=== PATIENT | female | born 1965 | race Caucasian/White ===

== ENCOUNTER 2017-01-12 16:15 | Emergency (ER) | payer OTHER ==
[~2017-01-12 16:15] MED LIST: ACTOS15 MG PO; ASPIRIN81 M1 PO; ATACAND8 MG PO; CLARITIN10 M2 PO; COREG3.125 MG PO; GLUCOPHAGE500 MG PO; IMITREX25 MG; LASIX20 MG PO; LATUDA20 MG PO; LEVEMIR FL100 UNIT/M SC; LEVOTHYROXINE100 MCG PO; ONGLYZA5 MG PO; SIMVASTATIN5 MG PO; VENTOLIN HFA IN
--- NOTE | 2017-01-13 12:33 | ED NURSING NOTES ---
Clinical Report - Nurses [facility] [address] [place] [address] 01/12/2017 16:16 [id number] Triage time 16:20 Jan 12 2017. Acuity: LEVEL 2. Chief Complaint: SUICIDAL THOUGHTS and HOMICIDAL THOUGHTS. Alert. No acute distress. CHHAYA COMA SCORE: [address] Coma Scale: 15- eyes open spontaneously (4); best verbal response- oriented x 4 (5); best motor response- obeys commands (6). --16:36 Rachel Sutton R.N. 16:20 01/12/17. BP: 142/105. HR: 88. RR: 20. O2 saturation: 97%. Temp: 98.4 F. Pain level now: 0/10. --16:36 Rachel Sutton R.N. Weight: 97.5 kg stated. Height/Length: 63 inches Per Patient. BMI: 38.1. --16:36 Rachel Sutton R.N. Medications HumaLOG Subcutaneous 5 units, before meals (lunch and dinner only). --16:23 Ashly Mayorga R.N. Victoza Subcutaneous 1.8, q AM. --16:23 Rachel Sutton R.N. Lipitor Oral (Tablet 20 mg) 1 tablet, at bedtime. --16:24 Rachel Sutton R.N. Carvedilol Phosphate ER Oral 12.5 mg, 2 x daily. --16:24 Rachel Sutton R.N. Candesartan Cilexetil Oral (Tablet 4 mg) 1 tablet, 2 x daily. --16:25 Rachel Sutton R.N. Furosemide 40 mg , 2x daily (1 1/2 in AM and 1 tab in afternoon). --16:25 Rachel Sutton R.N. ASA Oral 81 mg, daily. --16:26 Rachel Sutton R.N. Omeprazole Oral (Tablet Delayed Release 20 mg) 1 tablet, daily. --16:27 Rachel Sutton R.N. Zantac Oral (Tablet 150 mg) 1 tablet, at bedtime. --16:27 Rachel Sutton R.N. Latuda Oral (Tablet 40 mg) 1 tablet, Q AM. --16:27 Rachel Sutton R.N. Imitrex Oral (Tablet 100 mg) 1 tablet, PRN. --16:28 Rachel Sutton R.N. Mirapex Oral (Tablet 0.5 mg) 2 tablets, at bedtime. --16:28 Rachel Sutton R.N. Zofran Oral (Tablet 4 mg) 1 tablet, PRN. --16:29 Rachel Sutton R.N. TraZODone HCl Oral (Tablet 50 mg) 2 tablets, at bedtime. --16:29 Rachel Sutton R.N. Magnesium Oral 250 mg , twice daily. --16:29 Rachel Sutton R.N. Vitamin D 3 2000 IU, 2x a week. --16:30 Rachel Sutton R.N. HumuLIN 70/30 Subcutaneous (Suspension (70-30) 100 unit/mL) 28 units, q AM. --08:05 Ashly Mayorga R.N. The following entry was struck by Ashly Mayorga R.N., 08:06 (01/13/17) Reason - other. <<STRICKEN ENTRY-- HumuLIN N KwikPen Subcutaneous 28 units, 2 times daily. --16:22 Rachel Sutton R.N. --END STRIKE>> The following entry was struck and corrected by Ashly Mayorga R.N., 07:39 (01/13/17) Reason for correction - other(correction). <<STRICKEN ENTRY-- HumaLOG Subcutaneous 5 units, before meals. --16:23 Rachel Sutton R.N. --END STRIKE>>. Allergies Carafate. --16:31 Rachel Sutton R.N. LIsinopril. --16:31 Rachel Sutton R.N. Januvia. --16:31 Rachel Sutton R.N. LOSARTAN. --16:31 Rachel Sutton R.N. [place]. --16:31 Rachel Sutton R.N. Risperidone. --16:32 Rachel Sutton R.N. Seroquel. --16:32 Rachel Sutton R.N. Geodon. --16:32 Rachel Sutton R.N. Lamictal. --16:32 Rachel Sutton R.N. Depakote. --16:32 Rachel Sutton R.N. Reglan. --16:32 Rachel Sutton R.N. Gabapentin. --16:32 Rachel Sutton R.N. History Arrived by EMS. Historian: patient. Onset: today. She has had anxiety and sleeping difficulties and describes feelings of depression. Has been feeling agitated. Has not been confused. Denies having hallucinations. Treatment CODING TEAM LEAD: None. PAST MEDICAL HX: Immunizations: up-to-date. The patient is post-menopausal. SOCIAL HX: Never smoker. Occasional alcohol use. No drug use. No infectious disease exposure. SELF HARM ASSESSMENT: A self harm assessment was performed. The patient answered "yes" to the question "Have you recently felt down, depressed, or hopeless?", "Have you noticed less interest or pleasure in doing things?", "Do you have thoughts of harming or killing yourself?", "Are you here because you tried to hurt yourself?", "Have you ever tried to hurt yourself before today?" and "Have you recently had thoughts about harming or killing others?" and "no" to the question "Do you have any dangerous items in your possession?". The patient reports their behavior as anxious. In the ED the patient has been restless. She was placed in direct sight of the nurses station. Clothes and valuables were removed. The ED physician has been notified. ABUSE ASSESSMENT: Abuse assessment: The patient was asked "Do you feel safe in your home?", "Are you afraid to go home?", "Has anyone hurt you or threatened to hurt you?", "Are you afraid of your partner?" and "Have children witnessed violence in the home?". --16:36 Rachel Sutton R.N. PROBLEMS: Dehydration. Chest Wall Pain. Asthma. Bipolar Disorder. Hypothyroidism. Diabetes Mellitus. --16:32 Rachel Sutton R.N. ADDITIONAL SURGERIES: Cataract Surgery. Tonsillectomy. Uterine ablation . --16:32 Rachel Sutton R.N. Interventions ID band on patient. To room. --16:36 Rachel Sutton R.N. PHYSICAL ASSESSMENT GENERAL / NEURO / PSYCH: Alert. Oriented X 4. Appears in no acute distress. Patient's mood/affect appears flat and tearful. Patient appears calm and cooperative. RESPIRATORY: Respirations not labored. CVS: Capillary refill less than 2 seconds. GI / : Abdomen nontender. SKIN: Skin is warm and dry. --16:36 Rachel Sutton R.N. NURSING PROGRESS NOTES Patient gowned. Head of bed elevated. Suicide precautions initiated. Clothing / valuables removed. Patient placed in direct sight of the nurse's station. ED Physician has been notified. Two patient identifiers checked. Call light placed in reach. Side rails up x 2. Bed placed in lowest position. Brakes of bed on. Patient ready for evaluation. --16:37 Rachel Sutton R.N. 17:14 01/12/17. Patient ID band checked for patient name and birthdate: patient confirmed. Clean catch urine collected with return of yellow-colored clear urine; sample sent to lab for urinalysis, culture, drug screen and HCG. Specimen labeled in the presence of the patient. --17:14 April Cooper R.N. The patient reports no complaints and she is calm and resting quietly. GENERAL / NEURO / PSYCH: Denies anxiety. Alert. Patient appears calm and cooperative. Patient does not appear agitated. RESPIRATORY: No respiratory distress. SKIN: Skin is warm and dry. --19:44 Rachel Sutton R.N. 19:42 01/12/17. BP: 140/85. HR: 87. RR: 16. O2 saturation: 99%. Pain level now: 0/10. --19:44 Rachel Sutton R.N. 20:33 01/12/2017 home meds * PO . loratindine,thyroid, trazadone and lipitor --20:34 Rachel Sutton R.N. The patient is sleeping. RESPIRATORY: No respiratory distress. --02:05 Mike Wells R.N. 02:40 01/13/17. ( Pt given cup of water per request). --02:40 Bernadette Chavis R.N. The patient is sleeping. --03:03 Mike Wells R.N. 04:47 01/13/17. BP: 145/80 (regular adult cuff) taken on the left arm, via an automated monitor, while lying. HR: 68 (normal rate). RR: 14 (regular, unlabored and normal). O2 saturation: 98% on room air. Temp: 97.6 F (oral). --04:48 Mike Wells R.N. EKG time: (0445). EKG was ordered, performed by a nurse and shown to the ED physician. The patient is calm. ( Walked pt to/from bathroom.). GENERAL / NEURO / PSYCH: Alert. Oriented X 4. Patient appears calm and cooperative. RESPIRATORY: No respiratory distress. SKIN: Skin color within normal limits. --04:48 Mike Wells R.N. Warming measures: blanket applied. Lights dimmed. --04:51 Mike Wells R.N. 05:49 01/13/2017 Potassium Chloride (Potassium Chloride ER) PO Tablets 60 meq given. Allergies verified and confirmed 5 rights. --05:49 Mike Wells R.N. ( Gave pt jell-o x 2.). --05:56 Mike Wells R.N. Finger stick glucose: 246 mg/dL; performed by tech; result shown to the RN. --07:53 Aixa Flores 08:02 01/13/2017 Furosemide (Furosemide) PO Tablets 40 mg given. Allergies verified and confirmed 5 rights. --08:07 Ashly Mayorga R.N. 08:03 01/13/2017 Carvedilol PO Tablets 12.5 mg given. Allergies verified and confirmed 5 rights. --08:08 Ashly Mayorga R.N. 08:04 01/13/2017 Protonix (Pantoprazole Sodium) PO Tablets 40 mg given. (medicine committee approved interchange for omeprazole. See note from pharmacist). --08:09 Ashly Mayorga R.N. 08:04 01/13/2017 Magnesium Hydroxide PO Oral Suspension 10 mL given. Allergies verified and confirmed 5 rights. --08:09 Ashly Mayorga R.N. 08:09 01/13/2017 Humulin 70/30 Subcutaneous 28 unit given. Given in the right upper arm. Allergies verified and confirmed 5 rights. --08:14 Ashly Mayorga R.N. 08:00. Finger stick glucose: 246; performed by tech; result shown to the RN. --08:15 Ashly Mayorga R.N. ( Pt given breakfast, suicide precautions maintained. Friend at bedside). --08:15 Ashly Mayorga R.N. 10:01 01/13/17. The patient is sleeping. --10:01 Ashly Mayorga R.N. 10:27 01/13/17. Finger stick glucose: 283. --10:27 Ashly Mayorga R.N. Assisted patient to bathroom. --10:28 Ashly Mayorga R.N. The patient reports no complaints and she is calm and resting quietly. --10:28 Ashly Mayorga R.N. Assisted patient back to bed. --10:29 Ashly Mayorga R.N. The patient is sleeping. --11:07 Ashly Mayorga R.N. Suicide precautions maintained: a safety sweep of the room is ongoing. Frequent one on one supervision. --11:07 Ashly Mayorga R.N. 12:26 01/13/17. BP: 128/75. HR: 76. RR: 14. O2 saturation: 96% on room air. Temp: 97.6 F (oral). Pain level now 0/10. --12:26 Ashly Mayorga R.N. 12:26 01/13/17. --12:26 Ashly Mayorga R.N. The patient reports no complaints and she is calm and resting quietly. --12:27 Ashly Mayorga R.N. 12:34 01/13/2017 HUMALOG Subcutaneous 5 unit given. Given in the left upper arm. Allergies verified and confirmed 5 rights. --12:34 Ashly Mayorga R.N. 12:37 01/13/17. ( Lunch delivered to pt, suicidal precautions maintained). --12:37 Ashly Mayorga R.N. 12:51 01/13/17. Finger stick glucose: 276 mg/dL; performed by nurse. --12:51 Ashly Mayorga R.N. DISPOSITION / DISCHARGE 12:52 01/13/17. Departure time: 1259. ( see VS on progress flow sheet.). Report was given to an EMT/P. Report included patient's care, treatment, medications, reviewed medication reconcilliation, and condition (including any recent changes or anticipated changes). All questions were answered. ([facility]). Patient's personal items include, given to transport team. --12:53 Ashly Mayorga R.N. Report was given to a nurse via a phone call. Report included patient's care, treatment, medications, reviewed medication reconcilliation, and condition (including any recent changes or anticipated changes). Report was acknowledged and care was transferred. (Gaye Sanford RN). --13:05 Ashly Mayorga R.N. Locked/Released at 01/16/2017 15:04 by Ashly Mayorga R.N.
--- NOTE | 2017-01-13 12:33 | ED CLINICAL REPORT ---
Clinical Report - Physicians/Mid Levels [facility] [address] [place] [address] 01/12/2017 16:16 Patient: MICHAEL NGUYEN Time Seen: 16:21; upon arrival, initial patient contact, initial documentation, patient care assumed. Arrived- By private vehicle. Not in custody. Historian- patient. HISTORY OF PRESENT ILLNESS Chief Complaint: DEPRESSED and SUICIDAL THOUGHTS and AGITATED, AGGRESSIVE, HOMICIDAL THOUGHTS and VIOLENT BEHAVIOR. This started about 17 months ago. The patient has experienced situational problems but not exhibited a behavior change and was not found wandering and is compliant with medication. (having issues with neighbors for about 17mos, lots of banging on the jolley, today it was worse, and they were both banging and hitting the wall all day today, today it was bad enough that she wanted to slit her wrists and feels suicidal). No recent drug use or alcohol consumption. Has not been sleeping. She has had anxiety. Has been depressed and angry and had suicidal thoughts. No delusions, self-injury inflicted or hallucinations. The symptoms are described as severe. No injury is present. Similar symptoms previously: ( has suffered from depression but never had thoughts of si before). Recent medical care: Not recently seen/assessed. REVIEW OF SYSTEMS No headache, chest pain, abdominal pain, vomiting or diarrhea. No fever, cough, difficulty breathing or urinary frequency. All systems otherwise negative, except as recorded above. PAST HISTORY See nurses notes. ( PROBLEMS: Dehydration. Chest Wall Pain. Asthma. Bipolar Disorder. Hypothyroidism. Diabetes Mellitus. --16:32 Rachel Sutton, R.N. ADDITIONAL SURGERIES: Cataract Surgery. Tonsillectomy. Uterine ablation . --16:32 Rachel Sutton, R.N.). SOCIAL HISTORY Never smoker. Occasional alcohol use. No drug use. Has social support. Has place to stay. FAMILY HISTORY Negative. ADDITIONAL NOTES The nursing notes have been reviewed with agreement regarding the chief complaint, HPI, ROS, PMH and patient medications and allergies. PHYSICAL EXAM Vital Signs: 01/12/2017 16:20 BP: 142/105. HR: 88. RR: 20. O2 saturation: 97%. Temp: 98.4 F. Pain level now: 0/10. Have been reviewed as abnormal and appear to be correct. Hypertensive. Heart rate normal. Respiratory rate normal. Temperature normal. Oxygen saturation normal. Appearance: Alert. No acute distress. Appearance is normal. Eyes: Pupils equal, round and reactive to light. Neck: Normal inspection. Neck supple. CVS: Normal heart rate and rhythm. Heart sounds normal. Respiratory: Breath sounds normal. Chest nontender. Abdomen: Soft and nontender. Back: No tenderness. Skin: Skin warm and dry. Normal skin color. Normal skin turgor. Extremities: Extremities exhibit normal ROM. No lower extremity edema. Psych / Neuro: Oriented X 3. Abnormal mood and affect. Appears depressed. Speech normal. Cognition normal. Thought process not normal. Thought content normal. She expresses suicidal thoughts and a specific plan. Insight and judgement normal. Cranial nerves normal (as tested). No cerebellar findings. No motor deficit. No sensory deficit. LABS, X-RAYS, AND EKG EKG: No acute ischemia. Normal sinus rhythm. Rate: 68. Normal P waves. Normal MOISES. Normal QRS complex. Left axis deviation. Normal ST and T waves, QT and QTc. normal sinus. left access deviation. The study has been interpreted contemporaneously. The study has been independently viewed by me. The EKG appears to be a good tracing. I do not agree with or confirm the computer reading of the EKG. Laboratory Tests: UA-Culture if indicated: (AVIVA: 01/12/2017 17:11) ( MsgRcvd 01/12/2017 17:42) Final results Test Result Flag Units (Reference) URINE COLOR YELLOW URINE APPEARANCE CLEAR URINE GLUCOSE 1+ (NEGATIVE) URINE BILIRUBIN NEGATIVE (NEGATIVE) URINE KETONE NEGATIVE (NEGATIVE) URINE SPECIFIC GRAVITY 1.010 (1.010-1.030) URINE PH 7.5 (5.0-8.0) URINE PROTEIN NEGATIVE (NEGATIVE) URINE UROBILINOGEN 0.2 EU/dL (0.2-1.0) URINE NITRITE NEGATIVE (NEGATIVE) URINE BLOOD NEGATIVE (NEGATIVE) URINE LEUK ESTERASE NEGATIVE (NEGATIVE) URINE RBC NONE SEEN rbc/hpf (0-1) URINE WBC 0-1 wbc/hpf (0-1) URINE EPITHELIAL CELLS 5-10 EPI/hpf (0-5) URINE BACTERIA TRACE (<1+) (NONE SEEN) URINE COMMENT CULT NOT INDICATED URINE CULTURES ARE SET-UP BASED ON THE FOLLOWING CRITERIA:POSITIVE NITRITEPOSITIVE LEUKOCYTE ESTERASEGREATER THAN 10 WHITE BLOOD CELLSMODERATE (2+) OR GREATER BACTERIA Urine: (AVIVA: 01/12/2017 17:11) ( [facility]25[facility] Final results Test Result Flag Units (Reference) URINE NEGATIVE CBC w Diff: (AVIVA: 01/12/2017 16:40) ( [facility] 01/12/2017 16:51) Final results Test Result Flag Units (Reference) WHITE BLOOD COUNT 6.9 K/uL (4.5-11.5) RED BLOOD COUNT 3.80 L M/uL (4.00-5.20) HEMOGLOBIN 11.6 L gm/dL (12.0-16.0) HEMATOCRIT 34.3 L % (36.0-46.0) MEAN CELL VOLUME 90 fL (80-100) MEAN CORPUSCULAR HGB 31 pg (26-34) MEAN CORPUSCULAR HGB CONC 34 g/dL (31-37) RED CELL DISTRIBUTION WIDTH 13.8 % (11.6-14.8) PLATELET COUNT 290 K/uL (150-400) NEUTROPHIL % 58.3 % (50-75) LYMPH % 31.8 % (25-40) MONO % 8.0 % (3-14) EOSINOPHIL % 1.4 % (0-4) BASOPHIL % 0.5 % (0-2) Urine Drug Screen: (AVIVA: 01/12/2017 17:11) ( [facility] 01/12/2017 17:48) Final results Test Result Flag Units (Reference) AMPHETAMINE/METHAMPHETAMINE NEGATIVE (NEGATIVE) BARBITURATE NEGATIVE (NEGATIVE) BENZODIAZEPINE NEGATIVE (NEGATIVE) CANNABINOID NEGATIVE (NEGATIVE) COCAINE NEGATIVE (NEGATIVE) ECSTASY NEGATIVE (NEGATIVE) METHADONE NEGATIVE (NEGATIVE) OPIATE NEGATIVE (NEGATIVE) The urine drug screen is a qualitative screening test fordrug overdose and abuse. All screen results should beconsidered as presumptive.Drugs screened for are as follows:BenzodiazepinesCocaineAmphetamines/MetamphetaminesTHC (Tetrahydrocannabinol)OpiatesBarbituratesEcstasyMethadonePositive results are unconfirmed. For confirmation, notifythe lab for the specimen to be sent to the reference lab.All confirmations must be performed by a differentmethodology.The ingestion of natural herbal and plant productscontaining Ephedra/Ephedra metabolites can produce in urineone or more substances capable of cross reacting withamphetamine/methamphetamine immunoassays. These testsprovide a preliminary result only. A more specificalternative chemical method must be used to obtain aconfirmed analytical result. Salicylate Level: (AVIVA: 01/12/2017 16:40) ( MtgRcvd 01/12/2017 17:43) Final results Test Result Flag Units (Reference) SALICYLATE <2.8 L mg/dL (2.8-20) CMP: (AVIVA: 01/12/2017 16:40) ( MsgRcvd 01/12/2017 17:31) Final results Test Result Flag Units (Reference) GLUCOSE 223 H mg/dL (70-110) BUN 20 H mg/dL (7-18) CREATININE 1.6 H mg/dL (0.6-1.3) Estimated GFR 36.12 mL/min Estimated GFR- 43.77 mL/min Note: Persistent reduction over 3 months in eGFR<60 mL/min/1.73 m2 defines CKD. Patients with eGFR values>=60 mL/min/1.73 m2 may also have CKD if evidence ofpersistent proteinuria. Additional information may be foundat www.kidney.org. SODIUM 142 mmol/L (136-145) POTASSIUM 3.0 L mmol/L (3.5-5.1) CHLORIDE 102 mmol/L (98-107) CARBON DIOXIDE 34 H mmol/L (21-32) CALCIUM 8.9 mg/dL (8.5-10.1) TOTAL PROTEIN 6.8 g/dL (6.4-8.2) ALBUMIN 3.1 L g/dL (3.3-5.0) BILIRUBIN, TOTAL 0.4 mg/dL (0.0-1.0) ALKALINE PHOSPHATASE 100 U/L (46-116) AST (SGOT) 25 U/L (15-37) ALT (SGPT) 36 U/L (12-78) ACETAMINOPHEN < 2.0 L ug/mL (10-30) ETHYL ALCOHOL < 3.0 L mg/dL (3-10) . PROGRESS AND PROCEDURES Course of Care: 1735. [facility] team not available til 0100 18:35 01/12/17. having [facility] [place] that pt is medically cleared for consult 20:07 01/12/17. pt resting, watching tv, nad 21:40 01/12/17. report given to dr keith,whom will assume care around 2300 at end of my shift patient evaluated by crisis team. Patient voluntary. Would need EKG per crisis team due to cardiac history. patient without cardiac symptoms. EKG unremarkable. Dr. Keith reviewed the patient's history and examination findings and results of her studies with me. He also discussed her care during her time here in the emergency room. Arrangements have been made for her transfer which is to happen this afternoon. I reviewed the patient's history and the results of her studies with her end I examined her and my findings were consistent with those noted by Dr. Keith. Consult obtained from mental health. Consultation performed in ED. Patient/family counseled. Differential Diagnosis: Other possible considerations: substance abuse, bipolar, depression, si. Above considerations are based on history, physical exam and laboratory data. Differential diagnosis was discussed with patient. Disposition: Benefits, risks and alternatives to transfer explained to patient. Transferred to [facility]. CLINICAL IMPRESSION Diabetes. Suicidal ideation. Depression. hypokalemia. INSTRUCTIONS (htn). (Electronically signed by Charles Roberts MD 01/13/2017 15:07)
--- NOTE | 2017-01-13 12:33 | ED ORDER SUMMARY ---
..... Patient: MICHAEL NGUYEN OrderSheet [facility] VisitID: [id number] [address] [place] [address] 51y, F Registration Date/Time: 01/12/2017 ORDER SHEET Weight: 97.5 kg (stated) Allergies: Carafate, LIsinopril, Januvia, LOSARTAN, [place], Risperidone, Seroquel, Geodon, Lamictal, Depakote, Reglan, Gabapentin GENERAL ORDERS: CBC w Diff Urgent (16:26 01/12/2017 HBivens A.R.N.P.) (Ack 16:31 RKaruga) (17:14 LSullivan R.N.) CMP Urgent (16:01/12/2017 HBivens A.R.N.P.) (Ack 16:31 RKaruga) (17:14 LSullivan R.N.) UA-Culture if indicated Urgent (16:26 01/12/2017 HBivens A.R.N.P.) (Ack 16:31 RKaruga) (17:14 LSullivan R.N.) Urine Urgent (16:01/12/2017 HBivens A.R.N.P.) (Ack 16:31 RKaruga) (17:14 LSullivan R.N.) Urine Drug Screen Urgent (16:26 01/12/2017 HBivens A.R.N.P.) (Ack 16:31 RKaruga) (17:14 LSullivan R.N.) Salicylate Level Urgent (16:26 01/12/2017 HBivens A.R.N.P.) (Ack 16:31 RKaruga) (17:14 LSullivan R.N.) Ethyl Alcohol Urgent (16:26 01/12/2017 HBivens A.R.N.P.) (Ack 16:31 RKaruga) (17:14 LSullivan R.N.) Acetaminophen Level Urgent (16:26 01/12/2017 HBivens A.R.N.P.) (Ack 16:31 RKaruga) (17:14 LSullivan R.N.) EKG - ER Stat (04:33 01/13/2017 Jose Martin R.N. verbal order read back to HBivens A.R.N.P.) (Cancelled: Other4:33 JDeElena R.N.) EKG - ER Stat (04:33 01/13/2017 Jose Martin R.N. verbal order read back to Annabel Zuleta) (Ack 4:33 JManuelElena R.N.) (Cancelled: Duplicate Order4:38 AMcQuoid ER Tech1) EKG - ER Stat (04:34 01/13/2017 Annabel Zuleta) (Ack 4:38 AMcQuoid ER Tech1) (4:48 JManuelElenzachary R.N.) BNP Urgent (05:07 01/13/2017 Annabel Zuleta) (Cancelled: Other5:09 Annabel Zuleta) Potassium Urgent (06:50 01/13/2017 AMcQuoid ER Tech1 verbal order read back to HBivens A.R.N.P.) (Ack 6:51 AMcQuoid ER Tech1) (7:17 KWilliams R.N.) POC Glucose (08:58 01/13/2017 Annabel Zuleta) (10:28 KWilliams R.N.) MEDICATION ORDERS: - (OK to take night time home meds.) (20:31 01/12/2017 KKnebel R.N. verbal order read back to HBivens A.R.N.P.) (20:34 KKnebel R.N.) Potassium Chloride PO 60 meq (NOW) (05:36 01/13/2017 Annabel Zuleta) (Ack 5:40 JDeElena R.N.) (5:49 JDeElena R.N.) - (Humalin 28 units subQ once now) (07:26 01/13/2017 Annabel Zuleta) (Cancelled: Duplicate Order8:04 Annabel Zuleta) -- (Humalong 5 units once before breakfast) (07:27 01/13/2017 Annabel Zuleta) (Cancelled: Physician Order7:40 KWilliams R.N.) --- (carvedilol 12.5 mg PO once now) (07:27 01/13/2017 Annabel Zuleta) (8:08 Cristine R.N.) ---- (furosemide 40 mg PO once now) (07:27 01/13/2017 Annabel Zuleta) (8:07 COREYilliams R.N.) -- -- (omeprazole 20 mg PO once now) (07:01/13/2017 Annabel Zuleta) (8:09 Cristine R.N.) Magnesium Hydroxide PO 10 mL (Once PO now) (07:01/13/2017 Annabel Zuleta) (8:09 Cristine R.N.) -- --- (07:01/13/2017 Annabel Zuleta) (Cancelled: Physician Order7:40 KWvalente R.N.) HumuLIN 70/30 Subcut 28 u (once now) (08:05 01/13/2017 Annabel Zuleta) (8:14 KWilliams R.N.) HumaLOG Subcut 5 units (NOW) (12:31 01/13/2017 Cristine R.NYue verbal order read back to Yuliana NASH) (12:34 KWvalente R.N.) IV FLUIDS: ORDER SHEET NOTES: [Electronically signed by Charles Roberts MD (15:07 01/13/2017)] [Electronically signed by Ashly Mayorga R.N. (15:04 01/16/2017)] [Electronically locked/signed by Ashly Mayorga R.N. (15:04 01/16/2017)]
--- NOTE | 2017-01-13 12:33 | ED ORDER SUMMARY ---
..... Patient: MICHAEL NGUYEN OrderSheet [facility] VisitID: [id number] [address] [address] 51y, F Registration Date/Time: 01/12/2017 ORDER SHEET Weight: 97.5 kg (stated) Allergies: Carafate, LIsinopril, Januvia, LOSARTAN, [place], Risperidone, Seroquel, Geodon, Lamictal, Depakote, Reglan, Gabapentin GENERAL ORDERS: CBC w Diff Urgent (16:26 01/12/2017 HBivens A.R.N.P.) (Ack 16:31 RKaruga) (17:14 LSullivan R.N.) CMP Urgent (16:01/12/2017 HBivens A.R.N.P.) (Ack 16:31 RKaruga) (17:14 LSullivan R.N.) UA-Culture if indicated Urgent (16:26 01/12/2017 HBivens A.R.N.P.) (Ack 16:31 RKaruga) (17:14 LSullivan R.N.) Urine Urgent (16:01/12/2017 HBivens A.R.N.P.) (Ack 16:31 RKaruga) (17:14 LSullivan R.N.) Urine Drug Screen Urgent (16:26 01/12/2017 HBivens A.R.N.P.) (Ack 16:31 RKaruga) (17:14 LSullivan R.N.) Salicylate Level Urgent (16:26 01/12/2017 HBivens A.R.N.P.) (Ack 16:31 RKaruga) (17:14 LSullivan R.N.) Ethyl Alcohol Urgent (16:26 01/12/2017 HBivens A.R.N.P.) (Ack 16:31 RKaruga) (17:14 LSullivan R.N.) Acetaminophen Level Urgent (16:26 01/12/2017 HBivens A.R.N.P.) (Ack 16:31 RKaruga) (17:14 LSullivan R.N.) EKG - ER Stat (04:33 01/13/2017 Jose Martin R.N. verbal order read back to HBivens A.R.N.P.) (Cancelled: Other4:33 JDeElena R.N.) EKG - ER Stat (04:33 01/13/2017 Jose Martin R.N. verbal order read back to Annabel Zuleta) (Ack 4:33 JManuelElena R.N.) (Cancelled: Duplicate Order4:38 AMcQuoid ER Tech1) EKG - ER Stat (04:34 01/13/2017 Annabel Zuleta) (Ack 4:38 AMcQuoid ER Tech1) (4:48 JManuelElenzachary R.N.) BNP Urgent (05:07 01/13/2017 Annabel Zuleta) (Cancelled: Other5:09 Annabel Zuleta) Potassium Urgent (06:50 01/13/2017 AMcQuoid ER Tech1 verbal order read back to HBivens A.R.N.P.) (Ack 6:51 AMcQuoid ER Tech1) (7:17 KWilliams R.N.) POC Glucose (08:58 01/13/2017 Annabel Zuleta) (10:28 KWilliams R.N.) MEDICATION ORDERS: - (OK to take night time home meds.) (20:31 01/12/2017 KKnebel R.N. verbal order read back to HBivens A.R.N.P.) (20:34 KKnebel R.N.) Potassium Chloride PO 60 meq (NOW) (05:36 01/13/2017 Annabel Zuleta) (Ack 5:40 JDeElena R.N.) (5:49 JDeElena R.N.) - (Humalin 28 units subQ once now) (07:26 01/13/2017 Annabel Zuleta) (Cancelled: Duplicate Order8:04 Annabel Zuleta) -- (Humalong 5 units once before breakfast) (07:27 01/13/2017 Annabel Zuleta) (Cancelled: Physician Order7:40 KWilliams R.N.) --- (carvedilol 12.5 mg PO once now) (07:27 01/13/2017 Annabel Zuleta) (8:08 Cristine R.N.) ---- (furosemide 40 mg PO once now) (07:27 01/13/2017 Annabel Zuleta) (8:07 COREYilliams R.N.) -- -- (omeprazole 20 mg PO once now) (07:01/13/2017 Annabel Zuleta) (8:09 Cristine R.N.) Magnesium Hydroxide PO 10 mL (Once PO now) (07:01/13/2017 Annabel Zuleta) (8:09 Cristine R.N.) -- --- (07:01/13/2017 Annabel Zuleta) (Cancelled: Physician Order7:40 KWvalente R.N.) HumuLIN 70/30 Subcut 28 u (once now) (08:05 01/13/2017 Annabel Zuleta) (8:14 KWilliams R.N.) HumaLOG Subcut 5 units (NOW) (12:31 01/13/2017 Cristine R.NYue verbal order read back to Yuliana NASH) (12:34 KWvalente R.N.) IV FLUIDS: ORDER SHEET NOTES: [Electronically signed by Charles Roberts MD (15:07 01/13/2017)] [Electronically signed by Ashly Mayorga R.N. (15:04 01/16/2017)] [Electronically locked/signed by Ashly Mayorga R.N. (15:04 01/16/2017)]
--- NOTE | 2017-01-16 15:04 | ED MED RECONCILIATION SUMMARY ---
Patient: MICHAEL NGUYEN Medication Reconciliation Report [facility] VisitID: [id number] [address] [place] [address] 51y, F Registration Date/Time: 01/12/2017 Weight: 97.5 kg Height/Length: 63 in. BMI: 38.1 ALLERGIES: Carafate, Depakote, Gabapentin, Geodon, Januvia, Lamictal, LIsinopril, [place], LOSARTAN, Reglan, Risperidone, Seroquel The patient's Home Medications are listed below: THE FOLLOWING MEDICATIONS NEED TO BE RECONCILED: ASA Oral 81 mg, daily Candesartan Cilexetil Oral (4 mg) 1 tablet, 2 x daily Carvedilol Phosphate ER Oral 12.5 mg, 2 x daily Furosemide 40 mg , 2x daily, 1 1/2 in AM and 1 tab in afternoon HumaLOG Subcutaneous 5 units, before meals, lunch and dinner only HumuLIN 70/30 Subcutaneous ((70-30) 100 unit/mL) 28 units, q AM Imitrex Oral (100 mg) 1 tablet, PRN Latuda Oral (40 mg) 1 tablet, Q AM Lipitor Oral (20 mg) 1 tablet, at bedtime Magnesium Oral 250 mg , twice daily Mirapex Oral (0.5 mg) 2 tablets, at bedtime Omeprazole Oral (20 mg) 1 tablet, daily TraZODone HCl Oral (50 mg) 2 tablets, at bedtime Victoza Subcutaneous 1.8, q AM Vitamin D 3 2000 IU, 2x a week Zantac Oral (150 mg) 1 tablet, at bedtime Zofran Oral (4 mg) 1 tablet, PRN The source(s) of the original Home Medication information: Not obtained. The following Medications were given to the patient in the Emergency Department: home meds PO ., administered: 01/12/2017 8:33:00 PM Potassium Chloride [PO] PO 60 meq, administered: 01/13/2017 5:49:00 AM Furosemide [PO] PO 40 mg, administered: 01/13/2017 8:02:00 AM Carvedilol [PO] PO 12.5 mg, administered: 01/13/2017 8:03:00 AM Protonix [PO] PO 40 mg, administered: 01/13/2017 8:04:00 AM Magnesium Hydroxide [PO] PO 10 mL, administered: 01/13/2017 8:04:00 AM Humulin 70/30 [Subcutaneous] Subcutaneous 28 unit, administered: 01/13/2017 8:09:00 AM HUMALOG [SUBCUT] Subcutaneous 5 unit, administered: 01/13/2017 12:34:00 PM The following Medications were prescribed to the patient: None.
--- NOTE | 2017-01-16 15:04 | ED DISCHARGE INSTRUCTIONS ---
Patient: MICHAEL NGUYEN General Instructions [facility] VisitID: [id number] [address] [place] [address] 51y, F Registration Date/Time: 01/12/2017 Diabetes. Suicidal ideation. Depression. hypokalemia. INSTRUCTIONS (htn). (Electronically signed by Charles Roberts MD 01/13/2017 15:07)
--- NOTE | 2017-01-16 15:04 | ED MAR SUMMARY ---
..... Medication Administration Record [facility] [address] [place] [place] [address] Patient: MICHAEL NGUYEN Visit ID: [id number] 51y, F Weight: 97.5 kg Height/Length: 63 in BMI: 38.1 ALLERGIES: Gabapentin, Reglan, Depakote, Lamictal, Geodon, Seroquel, Risperidone, [place], LOSARTAN, Januvia, LIsinopril, Carafate Given 20:33 01/12/2017 Rachel Sutton R.N. Medication Administered: home meds *, Dose: . * PO. Medication Ordered: - (OK to take night time home meds.). Given 05:49 01/13/2017 Mike Wells R.N. Medication Administered: POTASSIUM CHLORIDE [PO] (POTASSIUM CHLORIDE ER), Dose: 60 meq Tablets PO. Medication Ordered: Potassium Chloride PO 60 meq (NOW). Given 08:02 01/13/2017 Ashly Mayorga R.N. Medication Administered: FUROSEMIDE [PO] (FUROSEMIDE), Dose: 40 mg Tablets PO. Medication Ordered: ---- (furosemide 40 mg PO once now). Given 08:01/13/2017 Ashly Mayorga R.N. Medication Administered: CARVEDILOL [PO], Dose: 12.5 mg Tablets PO. Medication Ordered: --- (carvedilol 12.5 mg PO once now). Given 08:04 01/13/2017 Ashly Mayorga R.N. Medication Administered: PROTONIX [PO] (PANTOPRAZOLE SODIUM), Dose: 40 mg Tablets PO. Medication Ordered: -- -- (omeprazole 20 mg PO once now). Given 08:01/13/2017 Ashly Mayorga R.N. Medication Administered: MAGNESIUM HYDROXIDE [PO], Dose: 10 mL Oral Suspension PO. Medication Ordered: Magnesium Hydroxide PO 10 mL (Once PO now). Given 08:09 01/13/2017 Ashly Mayorga R.N. Medication Administered: HUMULIN 70/30 [SUBCUTANEOUS], Dose: 28 unit Subcutaneous. Medication Ordered: HumuLIN 70/30 Subcut 28 u (once now). Given 12:34 01/13/2017 Ashly Mayorga R.N. Medication Administered: HUMALOG [SUBCUT], Dose: 5 unit Subcutaneous. Medication Ordered: HumaLOG Subcut 5 units (NOW).
--- NOTE | 2017-01-16 15:04 | ED DISCHARGE INSTRUCTIONS ---
Patient: MICHAEL NGUYEN General Instructions [facility] VisitID: [id number] [address] [place] [address] 51y, F Registration Date/Time: 01/12/2017 Diabetes. Suicidal ideation. Depression. hypokalemia. INSTRUCTIONS (htn). (Electronically signed by Charles Roberts MD 01/13/2017 15:07)
--- NOTE | 2017-01-16 15:04 | ED MED RECONCILIATION SUMMARY ---
Patient: MICHAEL NGUYEN Medication Reconciliation Report [facility] VisitID: [id number] [address] [place] [address] 51y, F Registration Date/Time: 01/12/2017 Weight: 97.5 kg Height/Length: 63 in. BMI: 38.1 ALLERGIES: Carafate, Depakote, Gabapentin, Geodon, Januvia, Lamictal, LIsinopril, [place], LOSARTAN, Reglan, Risperidone, Seroquel The patient's Home Medications are listed below: THE FOLLOWING MEDICATIONS NEED TO BE RECONCILED: ASA Oral 81 mg, daily Candesartan Cilexetil Oral (4 mg) 1 tablet, 2 x daily Carvedilol Phosphate ER Oral 12.5 mg, 2 x daily Furosemide 40 mg , 2x daily, 1 1/2 in AM and 1 tab in afternoon HumaLOG Subcutaneous 5 units, before meals, lunch and dinner only HumuLIN 70/30 Subcutaneous ((70-30) 100 unit/mL) 28 units, q AM Imitrex Oral (100 mg) 1 tablet, PRN Latuda Oral (40 mg) 1 tablet, Q AM Lipitor Oral (20 mg) 1 tablet, at bedtime Magnesium Oral 250 mg , twice daily Mirapex Oral (0.5 mg) 2 tablets, at bedtime Omeprazole Oral (20 mg) 1 tablet, daily TraZODone HCl Oral (50 mg) 2 tablets, at bedtime Victoza Subcutaneous 1.8, q AM Vitamin D 3 2000 IU, 2x a week Zantac Oral (150 mg) 1 tablet, at bedtime Zofran Oral (4 mg) 1 tablet, PRN The source(s) of the original Home Medication information: Not obtained. The following Medications were given to the patient in the Emergency Department: home meds PO ., administered: 01/12/2017 8:33:00 PM Potassium Chloride [PO] PO 60 meq, administered: 01/13/2017 5:49:00 AM Furosemide [PO] PO 40 mg, administered: 01/13/2017 8:02:00 AM Carvedilol [PO] PO 12.5 mg, administered: 01/13/2017 8:03:00 AM Protonix [PO] PO 40 mg, administered: 01/13/2017 8:04:00 AM Magnesium Hydroxide [PO] PO 10 mL, administered: 01/13/2017 8:04:00 AM Humulin 70/30 [Subcutaneous] Subcutaneous 28 unit, administered: 01/13/2017 8:09:00 AM HUMALOG [SUBCUT] Subcutaneous 5 unit, administered: 01/13/2017 12:34:00 PM The following Medications were prescribed to the patient: None.
--- NOTE | 2017-01-16 15:04 | ED MAR SUMMARY ---
..... Medication Administration Record [facility] [address] [place] [address] Patient: MICHAEL NGUYEN Visit ID: [id number] 51y, F Weight: 97.5 kg Height/Length: 63 in BMI: 38.1 ALLERGIES: Gabapentin, Reglan, Depakote, Lamictal, Geodon, Seroquel, Risperidone, [place], LOSARTAN, Januvia, LIsinopril, Carafate Given 20:33 01/12/2017 Rachel Sutton R.N. Medication Administered: home meds *, Dose: . * PO. Medication Ordered: - (OK to take night time home meds.). Given 05:49 01/13/2017 Mike Wells R.N. Medication Administered: POTASSIUM CHLORIDE [PO] (POTASSIUM CHLORIDE ER), Dose: 60 meq Tablets PO. Medication Ordered: Potassium Chloride PO 60 meq (NOW). Given 08:02 01/13/2017 Ashly Mayorga R.N. Medication Administered: FUROSEMIDE [PO] (FUROSEMIDE), Dose: 40 mg Tablets PO. Medication Ordered: ---- (furosemide 40 mg PO once now). Given 08:01/13/2017 Ashly Mayorga R.N. Medication Administered: CARVEDILOL [PO], Dose: 12.5 mg Tablets PO. Medication Ordered: --- (carvedilol 12.5 mg PO once now). Given 08:04 01/13/2017 Ashly Mayorga R.N. Medication Administered: PROTONIX [PO] (PANTOPRAZOLE SODIUM), Dose: 40 mg Tablets PO. Medication Ordered: -- -- (omeprazole 20 mg PO once now). Given 08:01/13/2017 Ashly Mayorga R.N. Medication Administered: MAGNESIUM HYDROXIDE [PO], Dose: 10 mL Oral Suspension PO. Medication Ordered: Magnesium Hydroxide PO 10 mL (Once PO now). Given 08:09 01/13/2017 Ashly Mayorga R.N. Medication Administered: HUMULIN 70/30 [SUBCUTANEOUS], Dose: 28 unit Subcutaneous. Medication Ordered: HumuLIN 70/30 Subcut 28 u (once now). Given 12:34 01/13/2017 Ashly Mayorga R.N. Medication Administered: HUMALOG [SUBCUT], Dose: 5 unit Subcutaneous. Medication Ordered: HumaLOG Subcut 5 units (NOW).
== END 2017-01-13 12:59 ==
LOC: ED SRH 16:15
DX: F32.9 Major depressive disorder, single episode, unspecified (principal); R45.851 Suicidal ideations; E11.9 Type 2 diabetes mellitus without complications; E87.6 Hypokalemia; E03.9 Hypothyroidism, unspecified; Z79.4 Long term (current) use of insulin; Z79.82 Long term (current) use of aspirin; Z79.899 Other long term (current) drug therapy; Z88.8 Allergy status to other drugs, medicaments and biological substances
CPT/HCPCS: 90004; 90074; 90098; 90100; 92010; 92750; 92760; 92761; 92762; 92763; 92764; 92765; 92766; 92767; 92780; 93070; 95059; 97000

== ENCOUNTER 2017-02-08 18:48 | Emergency (ER) | payer OTHER ==
--- NOTE | 2017-02-08 22:48 | DIAGNOSTIC IMAGING REPORT ---
PROCEDURE: XR CHEST 1 VIEW INDICATION: SHORTNESS OF BREATH TECHNIQUE: Single view chest. 2204 hours COMPARISON: 08/25/2015 FINDINGS: Normal cardiomediastinal contour and central vessels. Low lung volumes. The visible lung eli are clear without consolidation, effusion, or pneumothorax. Interval resolution of right infrahilar alveolar opacity. Intact osseous structures. IMPRESSION: 1. No acute process. Interval resolution of right infrahilar alveolar opacity.
--- NOTE | 2017-02-09 01:33 | ED ORDER SUMMARY ---
..... Patient: MICHAEL NGUYEN OrderSheet [facility] VisitID: [id number] [address] [place] [address] 51y, F Registration Date/Time: 02/08/2017 ORDER SHEET Weight: 92.9 kg Allergies: Carafate, Depakote, Gabapentin, Geodon, Januvia, Lamictal, LIsinopril, [place], LOSARTAN, Reglan, Risperidone, Seroquel GENERAL ORDERS: BMP Urgent (20:22 02/08/2017 Beto NASH) (20:23 TBowen R.N.) Magnesium Urgent (20:48 02/08/2017 Beto NASH) (Ack 20:50 SRedmond) (23:03 DDean R.N.) Chest 1V Urgent (21:17 02/08/2017 Yuliana NASH) (Ack 21:28 SRetonyaond) (22:09 MCampbell) Stock Grader (Continuous) (21:17 02/08/2017 Yuliana NASH) (Ack 21:26 SReholly) (21:30 TBowen R.N.) CBC w Diff Urgent (21:18 02/08/2017 Yuliana NASH) (Ack 21:29 SReholly) (23:03 DDean R.N.) CPK Urgent (21:18 02/08/2017 Yuliana NASH) (Ack 21:29 SReholly) (23:03 DDean R.N.) Troponin-I Urgent (21:18 02/08/2017 Yuliana NASH) (Ack 21:29 Roly) (23:03 DDean R.N.) Amylase Urgent (21:18 02/08/2017 Yuliana NASH) (Ack 21:29 Roly) (23:03 DDean R.N.) Lipase Urgent (21:18 02/08/2017 Yuliana NASH) (Ack 21:29 Roly) (23:03 DDean R.N.) Liver Function Panel Urgent (21:18 02/08/2017 Yuliana NASH) (Ack 21:29 Roly) (23:03 DDean R.N.) UA-Culture if indicated Urgent (21:18 02/08/2017 Yuliana NASH) (Ack 21:29 SRedmraj) (0:22 CFalkner R.N.) BNP Urgent (21:18 02/08/2017 Yuliana NASH) (Ack 21:29 SReholly) (23:03 DDean R.N.) D-Dimer Urgent (21:18 02/08/2017 Yuliana NASH) (Ack 21:29 SReholly) (23:03 DDean R.N.) Urine Urgent (21:18 02/08/2017 Yuliana NASH) (Ack 21:29 SRetonyaond) (0:23 CFalkner R.N.) EKG - ER Stat (21:18 02/08/2017 Yuliana NASH) (Ack 21:18 CHagerty ER Crystal Grinder) (21:25 CHagerty ER Crystal Grinder) Pulse oximeter (21:18 02/08/2017 Yuliana NASH) (Ack 21:26 SRedmond) (21:30 TBowen R.N.) MEDICATION ORDERS: KCl PO 20 meq (NOW) (20:48 02/08/2017 Beto NASH) (21:03 TBowen R.N.) IV FLUIDS: KCl IV 20 meq/100mL (Run no faster than 10 units/hr, NOW, Run no faster than 10 mEq/hr) (20:47 02/08/2017 Beto NASH) (21:03 TBowen R.N.) IV Saline Lock (20:48 02/08/2017 Beto NASH) (Ack 21:51 RCollier R.N.) IV Saline Lock (21:18 02/08/2017 Yuliana NASH) (Ack 21:51 RCollier R.N.) ORDER SHEET NOTES: [Electronically signed by Ashley Francis R.N. (01:42 02/09/2017)] [Electronically signed by Charles Roberts MD (02:20 02/14/2017)] [Electronically locked/signed by Ashley Francis R.N. (01:42 02/09/2017)]
--- NOTE | 2017-02-09 01:33 | ED NURSING NOTES ---
Clinical Report - [facility] [address] [place] [address] 02/08/2017 18:53 Patient: MICHAEL NGUYEN TRIAGE Triage time 19:43. Chief Complaint: (sent from PCP for low potassium per office blood work). --19:44 Rosas AnguianoN. Acuity: LEVEL 3. --19:55 Velasquez Anguiano.N. 19:52 02/08/17. BP: 141/84. HR: 82. RR: 16. O2 saturation: 97%. Temp: 98.2 F. Pain level now: 0/10. --19:55 Velasquez Anguiano.N. Weight: 92.9 kg. Height/Length: 63 inches. BMI: 36.3. --19:52 Annmarie R.N. Medications ASA Oral 81 mg, daily. Carvedilol Phosphate ER Oral 12.5 mg, 2 x daily. Furosemide 40 mg , 2x daily (1 1/2 in AM and 1 tab in afternoon). HumaLOG Subcutaneous 5 units, before meals (lunch and dinner only). HumuLIN 70/30 Subcutaneous (Suspension (70-30) 100 unit/mL) 28 units, q AM. Imitrex Oral (Tablet 100 mg) 1 tablet, PRN. Latuda Oral (Tablet 40 mg) 1 tablet, Q AM. Lipitor Oral (Tablet 20 mg) 1 tablet, at bedtime. --19:54 Annmarie R.N. Magnesium Oral 250 mg , twice daily. Mirapex Oral (Tablet 0.5 mg) 2 tablets, at bedtime. Omeprazole Oral (Tablet Delayed Release 20 mg) 1 tablet, daily. Victoza Subcutaneous 1.8, q AM. Vitamin D 3 2000 IU, 2x a week. Zantac Oral (Tablet 150 mg) 1 tablet, at bedtime. Zofran Oral (Tablet 4 mg) 1 tablet, PRN. --19:54 Velasquez Anguiano.N. Synthroid Oral. --19:55 Annmarie R.N. Allergies Carafate. Depakote. Gabapentin. Geodon. Januvia. Lamictal. LIsinopril. [place]. LOSARTAN. Reglan. Risperidone. Seroquel. --19:53 Allan Anguiano. History Arrived by private vehicle. Historian: patient. Accompanied by family. This started just prior to arrival. Treatment COUNTER TOP ASSEMBLER: None. PAST MEDICAL HX: Immunizations: up-to-date. SOCIAL HX: Never smoker. No infectious disease exposure. SELF HARM ASSESSMENT: A self harm assessment was performed. The patient answered "no" to the question "Have you recently felt down, depressed, or hopeless?", "Have you noticed less interest or pleasure in doing things?", "Do you have thoughts of harming or killing yourself?", "Are you here because you tried to hurt yourself?", "Have you ever tried to hurt yourself before today?", "Have you recently had thoughts about harming or killing others?" and "Do you have any dangerous items in your possession?". FALL RISK ASSESSMENT: Fall risk assessment completed. No fall risk identified. NUTRITIONAL RISK ASSESSMENT: The nutritional risk assessment revealed no deficiencies. FUNCTIONAL ASSESSMENT: Functional assessment: no impairments noted. LEARNING NEEDS ASSESSMENT: The learning needs assessment revealed no barriers. SKIN INTEGRITY ASSESSMENT: Skin integrity risk assessment completed. No skin integrity risk identified. --19:44 Rosas AnguianoN. SOCIAL HX: No alcohol use or drug use. --19:55 Allan Anguiano. PROBLEMS: Suicidal Ideation. Depression. Dehydration. Chest Wall Pain. Asthma. Bipolar Disorder. Hypothyroidism. Diabetes Mellitus. --19:55 Rosas AnguianoN. ADDITIONAL SURGERIES: Cataract Surgery. Tonsillectomy. Uterine ablation . --19:55 Rosas AnguianoN. Interventions ID band on patient. To treatment room. --19:55 Allan Anguiano. PHYSICAL ASSESSMENT Ambulatory to room. GENERAL / NEURO / PSYCH: Alert. Oriented X 4. Appears in no acute distress. HEENT: Pupils equal, round and reactive to light. No facial asymmetry noted. Mucous membranes are pink. RESPIRATORY: Respirations not labored. Chest nontender. Breath sounds within normal limits. CVS: Normal sinus rhythm noted. Capillary refill less than 2 seconds. Pulses within normal limits. GI / : Abdomen soft and nontender and normal bowel sounds. SKIN: Skin intact. Skin is warm and dry. Normal skin turgor. --19:56 Malu Anguiano NURSING PROGRESS NOTES armored cable machine operator and pulse oximeter placed on patient. --19:56 Malu Anguiano Call light placed in reach. Side rails up x 1. Bed placed in lowest position. Brakes of bed on. --19:56 Malu Anguiano 20:02/08/2017 Site #1 started via IV in the right forearm with an 20g angiocath, with aseptic technique and good blood return; one attempt. Blood drawn: rainbow set. Labeled in the presence of the patient and sent to the lab. Saline lock flushed with 10 mL saline. --20: Malu Anguiano Critical value received by Mary Kate AMATO 20:42 Feb 08 2017. K: 2.3. Critical value read back. ED physician notifed of critical value (Dr Partida). --20:43 Mary Kate Quezada R.N. 21:03 02/08/2017 Started 20 meq of KCL (Potassium Chloride) IVPB in bag #1 100 mL; at 50 mL/hr over 2 hour(s) via site #1 via IV pump. Allergies verified and confirmed 5 rights. IV patency established. IV site checked: no pain, redness, or swelling. IV flushed thoroughly pre- and post-medication administration. --21:03 Malu Anguiano 21:03 02/08/2017 KCL (Potassium Chloride ER) PO 20 meq given. Allergies verified and confirmed 5 rights. --21:03 Malu Anguiano EKG time: (2124). EKG was ordered, performed by a tech and shown to the ED physician. --21:26 Sharad Jacobson, ER Lab Technician ( pt aware that we need UA). --21:33 Malu Anguiano 23:01 02/08/2017 KCL IVPB Discontinued: bag #1 infused upon discharge. Total amount infused: 100 mL. IV patency established. IV site checked: no pain, redness, or swelling. IV flushed thoroughly. --23:01 Alessandra Fu R.N. DISPOSITION / DISCHARGE 01:41 02/09/2017 Site #1 removed upon discharge. Catheter intact. Bandaid applied. --01:41 Malu Anguiano Departure time: 01:41. Condition at departure: improved. No learning barriers present. Discharge instructions provided and reviewed with the patient. Reviewed medication(s) side effects, precautions, dosing and course information. Prescription(s) given to the patient. Follow up contact number with PCP. Patient verbalized understanding. Written instructions provided in [place]. No warning instructions, treatment instructions, referrals given to the patient, diet instructions or activity restrictions. No note given or stop smoking instructions. The patient was discharged by the physician. She was discharged home and accompanied by software team leader. She left the Emergency Department ambulatory and via private vehicle. Institution Librarian driving. FALL RISK ASSESSMENT: Fall risk assessment completed. No fall risk identified. --:41 Malu Anguiano 01:40 02/09/17. BP: 146/81. HR: 78. RR: 18. O2 saturation: 98%. Temp: deferred. Pain level now: 0/10. --01:41 Malu Anguiano Locked/Released at 02/09/2017 1:42 by Malu Anguiano
--- NOTE | 2017-02-09 01:33 | ED CLINICAL REPORT ---
Clinical Report - Physicians/Mid Levels [facility] [address] [place], [place] [address] 02/08/2017 18:53 Patient: MICHAEL NGUYEN Time Seen: 19:53. Arrived- By private vehicle. Historian- patient. HISTORY OF PRESENT ILLNESS Chief Complaint: ABNORMAL POTASSIUM. She was instructed by their PCP to come to the ED for evaluation. This started today. No loss of appetite, fatigue or weakness. REVIEW OF SYSTEMS No chills, fever, sweats, calf pain or chest pain. No cough, difficulty breathing, pedal edema, palpitations or abdominal pain. No constipation, diarrhea, nausea, vomiting or urinary problems. All systems otherwise negative, except as recorded above. PAST HISTORY Problems: Suicidal Ideation. Depression. Dehydration. Chest Wall Pain. Asthma. Bipolar Disorder. Hypothyroidism. Diabetes Mellitus. Additional Surgeries: Cataract Surgery. Tonsillectomy. Uterine ablation . Medications: Synthroid Oral. Magnesium Oral 250 mg , twice daily. Mirapex Oral (Tablet 0.5 mg) 2 tablets, at bedtime. Omeprazole Oral (Tablet Delayed Release 20 mg) 1 tablet, daily. Victoza Subcutaneous 1.8, q AM. Vitamin D 3 2000 IU, 2x a week. Zantac Oral (Tablet 150 mg) 1 tablet, at bedtime. Zofran Oral (Tablet 4 mg) 1 tablet, PRN. ASA Oral 81 mg, daily. Carvedilol Phosphate ER Oral 12.5 mg, 2 x daily. Furosemide 40 mg , 2x daily (1 1/2 in AM and 1 tab in afternoon). HumaLOG Subcutaneous 5 units, before meals (lunch and dinner only). HumuLIN 70/30 Subcutaneous (Suspension (70-30) 100 unit/mL) 28 units, q AM. Imitrex Oral (Tablet 100 mg) 1 tablet, PRN. Latuda Oral (Tablet 40 mg) 1 tablet, Q AM. Lipitor Oral (Tablet 20 mg) 1 tablet, at bedtime. Allergies: Carafate. Depakote. Gabapentin. Geodon. Januvia. Lamictal. LIsinopril. [place]. LOSARTAN. Reglan. Risperidone. Seroquel. SOCIAL HISTORY Never smoker. No alcohol use or drug use. FAMILY HISTORY Denies family medical history. ADDITIONAL NOTES The nursing notes have been reviewed. PHYSICAL EXAM Vital Signs: 02/08/2017 19:52 BP: 141/84. HR: 82. RR: 16. O2 saturation: 97%. Temp: 98.2 F. Pain level now: 0/10. Have been reviewed. Appearance: Alert. Eyes: Pupils equal, round and reactive to light. ENT: Pharynx normal. Neck: Neck supple. CVS: Normal heart rate and rhythm. Heart sounds normal. Respiratory: No respiratory distress. Breath sounds normal. Abdomen: No visible injury. Soft and nontender. Bowel sounds normal. No organomegaly. No mass. Back: Normal inspection. Skin: Skin warm and dry. Normal skin color. Normal skin turgor. Extremities: Extremities exhibit normal ROM. No calf tenderness. No lower extremity edema. LABS, X-RAYS, AND EKG EKG: Rate: 83. Non-specific ST segment / T wave abnormalities. EKG unchanged when compared with prior EKG. (13 January 2017). Laboratory Tests: UA-Culture if indicated: (AVIVA: 02/08/2017 23:55) ( MsgRcvd 02/09/2017 00:42) Final results Test Result Flag Units (Reference) URINE COLOR YELLOW URINE APPEARANCE CLEAR URINE GLUCOSE TRACE (NEGATIVE) URINE BILIRUBIN NEGATIVE (NEGATIVE) URINE KETONE NEGATIVE (NEGATIVE) URINE SPECIFIC GRAVITY <= 1.005 L (1.010-1.030) URINE PH 6.0 (5.0-8.0) URINE PROTEIN NEGATIVE (NEGATIVE) URINE UROBILINOGEN 0.2 EU/dL (0.2-1.0) URINE NITRITE NEGATIVE (NEGATIVE) URINE BLOOD NEGATIVE (NEGATIVE) URINE LEUK ESTERASE NEGATIVE (NEGATIVE) URINE RBC NONE SEEN rbc/hpf (0-1) URINE WBC NONE SEEN wbc/hpf (0-1) URINE EPITHELIAL CELLS 0-1 EPI/hpf (0-5) URINE BACTERIA NONE SEEN (NONE SEEN) URINE COMMENT CULT NOT INDICATED 5-10 HYALINE CASTURINE CULTURES ARE SET-UP BASED ON THE FOLLOWING CRITERIA:POSITIVE NITRITEPOSITIVE LEUKOCYTE ESTERASEGREATER THAN 10 WHITE BLOOD CELLSMODERATE (2+) OR GREATER BACTERIA Urine: (AVIVA: 02/08/2017 23:55) ( MsgRcvd 02/09/2017 00:16) Final results Test Result Flag Units (Reference) URINE NEGATIVE CBC w Diff: (AVIVA: 02/08/2017 20:00) ( MsgRcvd 02/08/2017 21:27) Final results Test Result Flag Units (Reference) WHITE BLOOD COUNT 8.1 K/uL (4.5-11.5) RED BLOOD COUNT 3.84 L M/uL (4.00-5.20) HEMOGLOBIN 11.5 L gm/dL (12.0-16.0) HEMATOCRIT 34.4 L % (36.0-46.0) MEAN CELL VOLUME 90 fL (80-100) MEAN CORPUSCULAR HGB 30 pg (26-34) MEAN CORPUSCULAR HGB CONC 33 g/dL (31-37) RED CELL DISTRIBUTION WIDTH 13.4 % (11.6-14.8) PLATELET COUNT 318 K/uL (150-400) NEUTROPHIL % 71.2 % (50-75) LYMPH % 18.9 L % (25-40) MONO % 9.5 % (3-14) EOSINOPHIL % 0 % (0-4) BASOPHIL % 0.4 % (0-2) [id number]: (AVIVA: 02/08/2017 20:00) ( OhgRcvd 02/08/2017 21:35) Final results Test Result Flag Units (Reference) D-DIMER QUANTITATIVE 0.31 ug/mLFEU (0.27-0.52) The primary value of this quantitative assay relates toits negative predictive value (i.e. exclusion) of pulmonaryembolism/deep vein thrombosis/DIC.Elevated levels of d-dimer may also occur with:, age, cancer, inflammation, liver disease,post-op, infection, hematoma, coronary disease, peripheralarteriopathy, bleeding disorders and thrombolytic treatment.Results should be correlated with other clinical andradiological data.Testing Methodology: Latex Immunoassay BNP: (AVIVA: 02/08/2017 20:00) ( [facility] 02/08/2017 21:48) Final results Test Result Flag Units (Reference) B-TYPE NATRIURETIC PEPTIDE 5.5 pg/ml (5-100) Liver Function Panel: (AVIVA: 02/08/2017 20:00) ( [facility] 02/08/2017 21:53) Final results Test Result Flag Units (Reference) TOTAL PROTEIN 7.4 g/dL (6.4-8.2) ALBUMIN 3.4 g/dL (3.3-5.0) BILIRUBIN, TOTAL 0.3 mg/dL (0.0-1.0) BILIRUBIN, DIRECT 0.1 mg/dL (0-0.3) ALKALINE PHOSPHATASE 90 U/L (46-116) AST (SGOT) 34 U/L (15-37) ALT (SGPT) 57 U/L (12-78) LIPASE 464 H U/L (73-393) AMYLASE 54 U/L (25-115) CPK 153 U/L (24-260) TROPONIN I <0.05 L ng/mL (0.00-1.5) TROPONIN REFERENCE RANGE:<0.1 NEGATIVE0.1-1.5 INDETERMINANT>1.5 POSITIVE BMP: (AVIVA: 02/08/2017 20:00) ( [facility] 02/08/2017 20:41) Final results Test Result Flag Units (Reference) GLUCOSE 374 H mg/dL (70-110) BUN 55 H mg/dL (7-18) CREATININE 2.9 H mg/dL (0.6-1.3) Estimated GFR 18.18 mL/min Estimated GFR- 22.04 mL/min Note: Persistent reduction over 3 months in eGFR<60 mL/min/1.73 m2 defines CKD. Patients with eGFR values>=60 mL/min/1.73 m2 may also have CKD if evidence ofpersistent proteinuria. Additional information may be foundat www.kidney.org. SODIUM 136 mmol/L (136-145) POTASSIUM 2.3 *L mmol/L (3.5-5.1) CRITICAL RESULTS CALLEDCalled to RN IN ED 02/08/172039Were 2 patient identifiers used? YWas the result read back? Y CHLORIDE 90 L mmol/L (98-107) CARBON DIOXIDE 39 H mmol/L (21-32) CALCIUM 9.1 mg/dL (8.5-10.1) MAGNESIUM 2.5 H mg/dL (1.8-2.4) . PROGRESS AND PROCEDURES Course of Care: Patient is stable. Patient/family counseled. Old medical records reviewed. Disposition: Discharged. Condition: stable. CLINICAL IMPRESSION Hypokalemia INSTRUCTIONS Warnings: Further evaluation is necessary. GENERAL WARNINGS: Return or contact your physician immediately if your condition worsens or changes unexpectedly, if not improving as expected, or if other problems arise. Your Current Medications: CONTINUE TAKING THE FOLLOWING MEDICATIONS: ASA Oral : 81 mg daily. Carvedilol Phosphate ER Oral : 12.5 mg 2 x daily. Furosemide* : 40 mg 2x daily, 1 1/2 in AM and 1 tab in afternoon. HumaLOG Subcutaneous : 5 units before meals, lunch and dinner only. HumuLIN 70/30 Subcutaneous : Suspension (70-30) 100 unit/mL, 28 units q AM. Prescription Medications: K-Dur 20 mEq: take 1 orally every 24 hours. Dispense five (5). No refills. Substitution is permissible. Follow-up: Follow up with your doctor Sunday in five days as scheduled. Understanding of the discharge instructions verbalized by patient and family. (Electronically signed by Charles Roberts MD 02/14/2017 2:20)
--- NOTE | 2017-02-09 01:33 | ED NURSING NOTES ---
Clinical Report - Nurses [facility] [address] [address] 02/08/2017 18:53 Patient: MICHAEL NGUYEN TRIAGE Triage time 19:43. Chief Complaint: (sent from PCP for low potassium per office blood work). --19:44 Rosas AnguianoN. Acuity: LEVEL 3. --19:55 Velasquez Anguiano.N. 19:52 02/08/17. BP: 141/84. HR: 82. RR: 16. O2 saturation: 97%. Temp: 98.2 F. Pain level now: 0/10. --19:55 Velasquez Anguiano.N. Weight: 92.9 kg. Height/Length: 63 inches. BMI: 36.3. --19:52 Annmarie R.N. Medications ASA Oral 81 mg, daily. Carvedilol Phosphate ER Oral 12.5 mg, 2 x daily. Furosemide 40 mg , 2x daily (1 1/2 in AM and 1 tab in afternoon). HumaLOG Subcutaneous 5 units, before meals (lunch and dinner only). HumuLIN 70/30 Subcutaneous (Suspension (70-30) 100 unit/mL) 28 units, q AM. Imitrex Oral (Tablet 100 mg) 1 tablet, PRN. Latuda Oral (Tablet 40 mg) 1 tablet, Q AM. Lipitor Oral (Tablet 20 mg) 1 tablet, at bedtime. --19:54 Annmarie R.N. Magnesium Oral 250 mg , twice daily. Mirapex Oral (Tablet 0.5 mg) 2 tablets, at bedtime. Omeprazole Oral (Tablet Delayed Release 20 mg) 1 tablet, daily. Victoza Subcutaneous 1.8, q AM. Vitamin D 3 2000 IU, 2x a week. Zantac Oral (Tablet 150 mg) 1 tablet, at bedtime. Zofran Oral (Tablet 4 mg) 1 tablet, PRN. --19:54 Velasquez Anguiano.N. Synthroid Oral. --19:55 Annmarie R.N. Allergies Carafate. Depakote. Gabapentin. Geodon. Januvia. Lamictal. LIsinopril. [place]. LOSARTAN. Reglan. Risperidone. Seroquel. --19:53 Allan Anguiano. History Arrived by private vehicle. Historian: patient. Accompanied by family. This started just prior to arrival. Treatment GEOSPATIAL IMAGERY INTELLIGENCE ANALYST: None. PAST MEDICAL HX: Immunizations: up-to-date. SOCIAL HX: Never smoker. No infectious disease exposure. SELF HARM ASSESSMENT: A self harm assessment was performed. The patient answered "no" to the question "Have you recently felt down, depressed, or hopeless?", "Have you noticed less interest or pleasure in doing things?", "Do you have thoughts of harming or killing yourself?", "Are you here because you tried to hurt yourself?", "Have you ever tried to hurt yourself before today?", "Have you recently had thoughts about harming or killing others?" and "Do you have any dangerous items in your possession?". FALL RISK ASSESSMENT: Fall risk assessment completed. No fall risk identified. NUTRITIONAL RISK ASSESSMENT: The nutritional risk assessment revealed no deficiencies. FUNCTIONAL ASSESSMENT: Functional assessment: no impairments noted. LEARNING NEEDS ASSESSMENT: The learning needs assessment revealed no barriers. SKIN INTEGRITY ASSESSMENT: Skin integrity risk assessment completed. No skin integrity risk identified. --19:44 Rosas AnguianoN. SOCIAL HX: No alcohol use or drug use. --19:55 Allan Anguiano. PROBLEMS: Suicidal Ideation. Depression. Dehydration. Chest Wall Pain. Asthma. Bipolar Disorder. Hypothyroidism. Diabetes Mellitus. --19:55 Rosas AnguianoN. ADDITIONAL SURGERIES: Cataract Surgery. Tonsillectomy. Uterine ablation . --19:55 Rosas AnguianoN. Interventions ID band on patient. To treatment room. --19:55 Allan Anguiano. PHYSICAL ASSESSMENT Ambulatory to room. GENERAL / NEURO / PSYCH: Alert. Oriented X 4. Appears in no acute distress. HEENT: Pupils equal, round and reactive to light. No facial asymmetry noted. Mucous membranes are pink. RESPIRATORY: Respirations not labored. Chest nontender. Breath sounds within normal limits. CVS: Normal sinus rhythm noted. Capillary refill less than 2 seconds. Pulses within normal limits. GI / : Abdomen soft and nontender and normal bowel sounds. SKIN: Skin intact. Skin is warm and dry. Normal skin turgor. --19:56 Malu Anguiano NURSING PROGRESS NOTES nicu rn and pulse oximeter placed on patient. --19:56 Malu Anguiano Call light placed in reach. Side rails up x 1. Bed placed in lowest position. Brakes of bed on. --19:56 Malu Anguiano 20:02/08/2017 Site #1 started via IV in the right forearm with an 20g angiocath, with aseptic technique and good blood return; one attempt. Blood drawn: rainbow set. Labeled in the presence of the patient and sent to the lab. Saline lock flushed with 10 mL saline. --20: Malu Anguiano Critical value received by Mary Kate AMATO 20:42 Feb 08 2017. K: 2.3. Critical value read back. ED physician notifed of critical value (Dr Partida). --20:43 Mary Kate Quezada R.N. 21:03 02/08/2017 Started 20 meq of KCL (Potassium Chloride) IVPB in bag #1 100 mL; at 50 mL/hr over 2 hour(s) via site #1 via IV pump. Allergies verified and confirmed 5 rights. IV patency established. IV site checked: no pain, redness, or swelling. IV flushed thoroughly pre- and post-medication administration. --21:03 Malu Anguiano 21:03 02/08/2017 KCL (Potassium Chloride ER) PO 20 meq given. Allergies verified and confirmed 5 rights. --21:03 Malu Anguiano EKG time: (2124). EKG was ordered, performed by a tech and shown to the ED physician. --21:26 Sharad Jacobson, ER Joinery Machinist ( pt aware that we need UA). --21:33 Malu Anguiano 23:01 02/08/2017 KCL IVPB Discontinued: bag #1 infused upon discharge. Total amount infused: 100 mL. IV patency established. IV site checked: no pain, redness, or swelling. IV flushed thoroughly. --23:01 Alessandra Fu R.N. DISPOSITION / DISCHARGE 01:41 02/09/2017 Site #1 removed upon discharge. Catheter intact. Bandaid applied. --01:41 Malu Anguiano Departure time: 01:41. Condition at departure: improved. No learning barriers present. Discharge instructions provided and reviewed with the patient. Reviewed medication(s) side effects, precautions, dosing and course information. Prescription(s) given to the patient. Follow up contact number with PCP. Patient verbalized understanding. Written instructions provided in Bangladeshi. No warning instructions, treatment instructions, referrals given to the patient, diet instructions or activity restrictions. No note given or stop smoking instructions. The patient was discharged by the physician. She was discharged home and accompanied by economics analyst. She left the Emergency Department ambulatory and via private vehicle. Pigment Pusher driving. FALL RISK ASSESSMENT: Fall risk assessment completed. No fall risk identified. --:41 Malu Anguiano 01:40 02/09/17. BP: 146/81. HR: 78. RR: 18. O2 saturation: 98%. Temp: deferred. Pain level now: 0/10. --01:41 Malu Anguiano Locked/Released at 02/09/2017 1:42 by Malu Anguiano
--- NOTE | 2017-02-09 01:33 | ED ORDER SUMMARY ---
..... Patient: MICHAEL NGUYEN OrderSheet [facility] VisitID: [id number] [address] [place] [address] 51y, F Registration Date/Time: 02/08/2017 ORDER SHEET Weight: 92.9 kg Allergies: Carafate, Depakote, Gabapentin, Geodon, Januvia, Lamictal, LIsinopril, [place], LOSARTAN, Reglan, Risperidone, Seroquel GENERAL ORDERS: BMP Urgent (20:22 02/08/2017 Beto NASH) (20:23 TBowen R.N.) Magnesium Urgent (20:48 02/08/2017 Beto NASH) (Ack 20:50 SRedmond) (23:03 DDean R.N.) Chest 1V Urgent (21:17 02/08/2017 Yuliana NASH) (Ack 21:28 SRetonyaond) (22:09 MCampbell) Machine Cloth Examiner (Continuous) (21:17 02/08/2017 Yuliana NASH) (Ack 21:26 SReholly) (21:30 TBowen R.N.) CBC w Diff Urgent (21:18 02/08/2017 Yuliana NASH) (Ack 21:29 SReholly) (23:03 DDean R.N.) CPK Urgent (21:18 02/08/2017 Yuliana NASH) (Ack 21:29 SReholly) (23:03 DDean R.N.) Troponin-I Urgent (21:18 02/08/2017 Yuliana NASH) (Ack 21:29 Roly) (23:03 DDean R.N.) Amylase Urgent (21:18 02/08/2017 Yuliana NASH) (Ack 21:29 Roly) (23:03 DDean R.N.) Lipase Urgent (21:18 02/08/2017 Yuliana NASH) (Ack 21:29 Roly) (23:03 DDean R.N.) Liver Function Panel Urgent (21:18 02/08/2017 Yuliana NASH) (Ack 21:29 Roly) (23:03 DDean R.N.) UA-Culture if indicated Urgent (21:18 02/08/2017 Yuliana NASH) (Ack 21:29 SRedmraj) (0:22 CFalkner R.N.) BNP Urgent (21:18 02/08/2017 Yuliana NASH) (Ack 21:29 SReholly) (23:03 DDean R.N.) D-Dimer Urgent (21:18 02/08/2017 Yuliana NASH) (Ack 21:29 SReholly) (23:03 DDean R.N.) Urine Urgent (21:18 02/08/2017 Yuliana NASH) (Ack 21:29 SRetonyaond) (0:23 CFalkner R.N.) EKG - ER Stat (21:18 02/08/2017 Yuliana NASH) (Ack 21:18 CHagerty ER Rn Otolaryngology) (21:25 CHagerty ER Rn Otolaryngology) Pulse oximeter (21:18 02/08/2017 Yuliana NASH) (Ack 21:26 SRedmond) (21:30 TBowen R.N.) MEDICATION ORDERS: KCl PO 20 meq (NOW) (20:48 02/08/2017 Beto NASH) (21:03 TBowen R.N.) IV FLUIDS: KCl IV 20 meq/100mL (Run no faster than 10 units/hr, NOW, Run no faster than 10 mEq/hr) (20:47 02/08/2017 Beto NASH) (21:03 TBowen R.N.) IV Saline Lock (20:48 02/08/2017 Beto NASH) (Ack 21:51 RCollier R.N.) IV Saline Lock (21:18 02/08/2017 Yuliana NASH) (Ack 21:51 RCollier R.N.) ORDER SHEET NOTES: [Electronically signed by Ashley Francis R.N. (01:42 02/09/2017)] [Electronically signed by Charles Roberts MD (02:20 02/14/2017)] [Electronically locked/signed by Ashley Francis R.N. (01:42 02/09/2017)]
--- NOTE | 2017-02-09 01:33 | ED CLINICAL REPORT ---
Clinical Report - Physicians/Mid Levels [facility] [address] [place] [address] 02/08/2017 18:53 Patient: MICHAEL NGUYEN Time Seen: 19:53. Arrived- By private vehicle. Historian- patient. HISTORY OF PRESENT ILLNESS Chief Complaint: ABNORMAL POTASSIUM. She was instructed by their PCP to come to the ED for evaluation. This started today. No loss of appetite, fatigue or weakness. REVIEW OF SYSTEMS No chills, fever, sweats, calf pain or chest pain. No cough, difficulty breathing, pedal edema, palpitations or abdominal pain. No constipation, diarrhea, nausea, vomiting or urinary problems. All systems otherwise negative, except as recorded above. PAST HISTORY Problems: Suicidal Ideation. Depression. Dehydration. Chest Wall Pain. Asthma. Bipolar Disorder. Hypothyroidism. Diabetes Mellitus. Additional Surgeries: Cataract Surgery. Tonsillectomy. Uterine ablation . Medications: Synthroid Oral. Magnesium Oral 250 mg , twice daily. Mirapex Oral (Tablet 0.5 mg) 2 tablets, at bedtime. Omeprazole Oral (Tablet Delayed Release 20 mg) 1 tablet, daily. Victoza Subcutaneous 1.8, q AM. Vitamin D 3 2000 IU, 2x a week. Zantac Oral (Tablet 150 mg) 1 tablet, at bedtime. Zofran Oral (Tablet 4 mg) 1 tablet, PRN. ASA Oral 81 mg, daily. Carvedilol Phosphate ER Oral 12.5 mg, 2 x daily. Furosemide 40 mg , 2x daily (1 1/2 in AM and 1 tab in afternoon). HumaLOG Subcutaneous 5 units, before meals (lunch and dinner only). HumuLIN 70/30 Subcutaneous (Suspension (70-30) 100 unit/mL) 28 units, q AM. Imitrex Oral (Tablet 100 mg) 1 tablet, PRN. Latuda Oral (Tablet 40 mg) 1 tablet, Q AM. Lipitor Oral (Tablet 20 mg) 1 tablet, at bedtime. Allergies: Carafate. Depakote. Gabapentin. Geodon. Januvia. Lamictal. LIsinopril. [place]. LOSARTAN. Reglan. Risperidone. Seroquel. SOCIAL HISTORY Never smoker. No alcohol use or drug use. FAMILY HISTORY Denies family medical history. ADDITIONAL NOTES The nursing notes have been reviewed. PHYSICAL EXAM Vital Signs: 02/08/2017 19:52 BP: 141/84. HR: 82. RR: 16. O2 saturation: 97%. Temp: 98.2 F. Pain level now: 0/10. Have been reviewed. Appearance: Alert. Eyes: Pupils equal, round and reactive to light. ENT: Pharynx normal. Neck: Neck supple. CVS: Normal heart rate and rhythm. Heart sounds normal. Respiratory: No respiratory distress. Breath sounds normal. Abdomen: No visible injury. Soft and nontender. Bowel sounds normal. No organomegaly. No mass. Back: Normal inspection. Skin: Skin warm and dry. Normal skin color. Normal skin turgor. Extremities: Extremities exhibit normal ROM. No calf tenderness. No lower extremity edema. LABS, X-RAYS, AND EKG EKG: Rate: 83. Non-specific ST segment / T wave abnormalities. EKG unchanged when compared with prior EKG. (13 January 2017). Laboratory Tests: UA-Culture if indicated: (AVIVA: 02/08/2017 23:55) ( MsgRcvd 02/09/2017 00:42) Final results Test Result Flag Units (Reference) URINE COLOR YELLOW URINE APPEARANCE CLEAR URINE GLUCOSE TRACE (NEGATIVE) URINE BILIRUBIN NEGATIVE (NEGATIVE) URINE KETONE NEGATIVE (NEGATIVE) URINE SPECIFIC GRAVITY <= 1.005 L (1.010-1.030) URINE PH 6.0 (5.0-8.0) URINE PROTEIN NEGATIVE (NEGATIVE) URINE UROBILINOGEN 0.2 EU/dL (0.2-1.0) URINE NITRITE NEGATIVE (NEGATIVE) URINE BLOOD NEGATIVE (NEGATIVE) URINE LEUK ESTERASE NEGATIVE (NEGATIVE) URINE RBC NONE SEEN rbc/hpf (0-1) URINE WBC NONE SEEN wbc/hpf (0-1) URINE EPITHELIAL CELLS 0-1 EPI/hpf (0-5) URINE BACTERIA NONE SEEN (NONE SEEN) URINE COMMENT CULT NOT INDICATED 5-10 HYALINE CASTURINE CULTURES ARE SET-UP BASED ON THE FOLLOWING CRITERIA:POSITIVE NITRITEPOSITIVE LEUKOCYTE ESTERASEGREATER THAN 10 WHITE BLOOD CELLSMODERATE (2+) OR GREATER BACTERIA Urine: (AVIVA: 02/08/2017 23:55) ( MsgRcvd 02/09/2017 00:16) Final results Test Result Flag Units (Reference) URINE NEGATIVE CBC w Diff: (AVIVA: 02/08/2017 20:00) ( MsgRcvd 02/08/2017 21:27) Final results Test Result Flag Units (Reference) WHITE BLOOD COUNT 8.1 K/uL (4.5-11.5) RED BLOOD COUNT 3.84 L M/uL (4.00-5.20) HEMOGLOBIN 11.5 L gm/dL (12.0-16.0) HEMATOCRIT 34.4 L % (36.0-46.0) MEAN CELL VOLUME 90 fL (80-100) MEAN CORPUSCULAR HGB 30 pg (26-34) MEAN CORPUSCULAR HGB CONC 33 g/dL (31-37) RED CELL DISTRIBUTION WIDTH 13.4 % (11.6-14.8) PLATELET COUNT 318 K/uL (150-400) NEUTROPHIL % 71.2 % (50-75) LYMPH % 18.9 L % (25-40) MONO % 9.5 % (3-14) EOSINOPHIL % 0 % (0-4) BASOPHIL % 0.4 % (0-2) [id number]: (AVIVA: 02/08/2017 20:00) ( OkgRcvd 02/08/2017 21:35) Final results Test Result Flag Units (Reference) D-DIMER QUANTITATIVE 0.31 ug/mLFEU (0.27-0.52) The primary value of this quantitative assay relates toits negative predictive value (i.e. exclusion) of pulmonaryembolism/deep vein thrombosis/DIC.Elevated levels of d-dimer may also occur with:, age, cancer, inflammation, liver disease,post-op, infection, hematoma, coronary disease, peripheralarteriopathy, bleeding disorders and thrombolytic treatment.Results should be correlated with other clinical andradiological data.Testing Methodology: Latex Immunoassay BNP: (AVIVA: 02/08/2017 20:00) ( [facility] 02/08/2017 21:48) Final results Test Result Flag Units (Reference) B-TYPE NATRIURETIC PEPTIDE 5.5 pg/ml (5-100) Liver Function Panel: (AVIVA: 02/08/2017 20:00) ( [facility] 02/08/2017 21:53) Final results Test Result Flag Units (Reference) TOTAL PROTEIN 7.4 g/dL (6.4-8.2) ALBUMIN 3.4 g/dL (3.3-5.0) BILIRUBIN, TOTAL 0.3 mg/dL (0.0-1.0) BILIRUBIN, DIRECT 0.1 mg/dL (0-0.3) ALKALINE PHOSPHATASE 90 U/L (46-116) AST (SGOT) 34 U/L (15-37) ALT (SGPT) 57 U/L (12-78) LIPASE 464 H U/L (73-393) AMYLASE 54 U/L (25-115) CPK 153 U/L (24-260) TROPONIN I <0.05 L ng/mL (0.00-1.5) TROPONIN REFERENCE RANGE:<0.1 NEGATIVE0.1-1.5 INDETERMINANT>1.5 POSITIVE BMP: (AVIVA: 02/08/2017 20:00) ( [facility] 02/08/2017 20:41) Final results Test Result Flag Units (Reference) GLUCOSE 374 H mg/dL (70-110) BUN 55 H mg/dL (7-18) CREATININE 2.9 H mg/dL (0.6-1.3) Estimated GFR 18.18 mL/min Estimated GFR- 22.04 mL/min Note: Persistent reduction over 3 months in eGFR<60 mL/min/1.73 m2 defines CKD. Patients with eGFR values>=60 mL/min/1.73 m2 may also have CKD if evidence ofpersistent proteinuria. Additional information may be foundat www.kidney.org. SODIUM 136 mmol/L (136-145) POTASSIUM 2.3 *L mmol/L (3.5-5.1) CRITICAL RESULTS CALLEDCalled to RN IN ED 02/08/172039Were 2 patient identifiers used? YWas the result read back? Y CHLORIDE 90 L mmol/L (98-107) CARBON DIOXIDE 39 H mmol/L (21-32) CALCIUM 9.1 mg/dL (8.5-10.1) MAGNESIUM 2.5 H mg/dL (1.8-2.4) . PROGRESS AND PROCEDURES Course of Care: Patient is stable. Patient/family counseled. Old medical records reviewed. Disposition: Discharged. Condition: stable. CLINICAL IMPRESSION Hypokalemia INSTRUCTIONS Warnings: Further evaluation is necessary. GENERAL WARNINGS: Return or contact your physician immediately if your condition worsens or changes unexpectedly, if not improving as expected, or if other problems arise. Your Current Medications: CONTINUE TAKING THE FOLLOWING MEDICATIONS: ASA Oral : 81 mg daily. Carvedilol Phosphate ER Oral : 12.5 mg 2 x daily. Furosemide* : 40 mg 2x daily, 1 1/2 in AM and 1 tab in afternoon. HumaLOG Subcutaneous : 5 units before meals, lunch and dinner only. HumuLIN 70/30 Subcutaneous : Suspension (70-30) 100 unit/mL, 28 units q AM. Prescription Medications: K-Dur 20 mEq: take 1 orally every 24 hours. Dispense five (5). No refills. Substitution is permissible. Follow-up: Follow up with your doctor Sunday in five days as scheduled. Understanding of the discharge instructions verbalized by patient and family. (Electronically signed by Charles Roberts MD 02/14/2017 2:20)
--- NOTE | 2017-02-14 02:20 | ED DISCHARGE INSTRUCTIONS ---
Patient: MICHAEL NGUYEN General Instructions [facility] VisitID: [id number] [address] [place] [address] 51y, F Registration Date/Time: 02/08/2017 Hypokalemia INSTRUCTIONS Warnings: Further evaluation is necessary. GENERAL WARNINGS: Return or contact your physician immediately if your condition worsens or changes unexpectedly, if not improving as expected, or if other problems arise. Your Current Medications: CONTINUE TAKING THE FOLLOWING MEDICATIONS: ASA Oral : 81 mg daily. Carvedilol Phosphate ER Oral : 12.5 mg 2 x daily. Furosemide* : 40 mg 2x daily, 1 1/2 in AM and 1 tab in afternoon. HumaLOG Subcutaneous : 5 units before meals, lunch and dinner only. HumuLIN 70/30 Subcutaneous : Suspension (70-30) 100 unit/mL, 28 units q AM. Prescription Medications: K-Dur 20 mEq: take 1 orally every 24 hours. Dispense five (5). No refills. Substitution is permissible. Follow-up: Follow up with your doctor Sunday in five days as scheduled. Understanding of the discharge instructions verbalized by patient and family. ADDITIONAL INFORMATION Hypokalemia Hypokalemia means a low level of potassium in the blood. This most often occurs in patients who take diuretics (water pills). It can also occur due to severe vomiting or diarrhea. A mild case usually causes no symptoms. It is only found with blood testing. More severe potassium loss causes generalized weakness, muscle or abdominal cramping, heart palpitations (rapid or irregular heartbeats) and low blood pressure. Home Care: 1) Take any potassium supplements prescribed. 2) Eat foods rich in potassium. The highest amount is found in artichoke, baked potatoes, spinach, cantaloupe, honeydew melon, cod, halibut, salmon, and scallops. White, red, or muller beans are also very good sources. A modest amount is found in orange juice, bananas, carrots, and tomato juice. 3) Certain types of diuretics (water pills), such as Lasix (furosemide), require that you take potassium supplements for as long as you take the diuretic pills. If you are taking a diuretic, discuss the need for potassium supplements with your doctor. Follow Up with your doctor for a repeat blood test within the next week or as advised by our staff. Get Prompt Medical Attention if any of the following occur: -- Increased weakness -- Feeling dizzy -- Irregular heartbeat, extra beats or very fast heart rate -- Fainting spell You have been given the following additional information: Hypokalemia (Electronically signed by Charles Roberts MD 02/14/2017 2:20)
--- NOTE | 2017-02-14 02:20 | ED MAR SUMMARY ---
..... Medication Administration Record [facility] [address] [place] [address] Patient: MICHAEL NGUYEN Visit ID: [id number] 51y, F Weight: 92.9 kg Height/Length: 63 in BMI: 36.3 ALLERGIES: Carafate, Depakote, Gabapentin, Geodon, Januvia, Lamictal, LIsinopril, Blacktail, LOSARTAN, Reglan, Risperidone, Seroquel Start 21:03 02/08/2017 Malu Anguiano, Stop 23:01 02/08/2017 Tank, Malu Aparicio Medication Administered: KCL [IVPB] (POTASSIUM CHLORIDE), Dose: 20 meq IVPB over 2 hour(s), Rate: 50 mL/hr, Dispensed: 100 mL bag, Site: #1 right forearm. Medication Ordered: KCl IV 20 meq/100mL (Run no faster than 10 units/hr, NOW, Run no faster than 10 mEq/hr). Given 21:03 02/08/2017 Malu Anguiano Medication Administered: KCL [PO] (POTASSIUM CHLORIDE ER), Dose: 20 meq PO. Medication Ordered: KCl PO 20 meq (NOW).
--- NOTE | 2017-02-14 02:20 | ED MED RECONCILIATION SUMMARY ---
Patient: MICHAEL NGUYEN Medication Reconciliation Report [facility] VisitID: [id number] [address] [place] [address] 51y, F Registration Date/Time: 02/08/2017 Weight: 92.9 kg Height/Length: 63 in. BMI: 36.3 ALLERGIES: Carafate, Depakote, Gabapentin, Geodon, Januvia, Lamictal, LIsinopril, Erick, LOSARTAN, Reglan, Risperidone, Seroquel The patient's Home Medications are listed below: CONTINUE TAKING THE FOLLOWING MEDICATIONS: ASA Oral 81 mg, daily Carvedilol Phosphate ER Oral 12.5 mg, 2 x daily Furosemide 40 mg , 2x daily, 1 1/2 in AM and 1 tab in afternoon HumaLOG Subcutaneous 5 units, before meals, lunch and dinner only HumuLIN 70/30 Subcutaneous ((70-30) 100 unit/mL) 28 units, q AM THE FOLLOWING MEDICATIONS NEED TO BE RECONCILED: Imitrex Oral (100 mg) 1 tablet, PRN Latuda Oral (40 mg) 1 tablet, Q AM Lipitor Oral (20 mg) 1 tablet, at bedtime Magnesium Oral 250 mg , twice daily Mirapex Oral (0.5 mg) 2 tablets, at bedtime Omeprazole Oral (20 mg) 1 tablet, daily Synthroid Oral Victoza Subcutaneous 1.8, q AM Vitamin D 3 2000 IU, 2x a week Zantac Oral (150 mg) 1 tablet, at bedtime Zofran Oral (4 mg) 1 tablet, PRN The source(s) of the original Home Medication information: Not obtained. The following Medications were given to the patient in the Emergency Department: KCL [IVPB] IVPB bolus 0, then 20 meq 50 mL/hr, administered: 02/08/2017 9:03:00 PM KCL [PO] PO 20 meq, administered: 02/08/2017 9:03:00 PM The following Medications were prescribed to the patient: K-Dur 20 mEq: take 1 orally every 24 hours. Dispense five (5). No refills. Substitution is permissible. -- Charles Roberts MD
--- NOTE | 2017-02-14 02:20 | ED MAR SUMMARY ---
..... Medication Administration Record [facility] [address] [place] [address] Patient: MICHAEL NGUYEN Visit ID: [id number] 51y, F Weight: 92.9 kg Height/Length: 63 in BMI: 36.3 ALLERGIES: Carafate, Depakote, Gabapentin, Geodon, Januvia, Lamictal, LIsinopril, [place], LOSARTAN, Reglan, Risperidone, Seroquel Start 21:03 02/08/2017 Malu Anguiano, Stop 23:01 02/08/2017 Tank, Malu Aparicio Medication Administered: KCL [IVPB] (POTASSIUM CHLORIDE), Dose: 20 meq IVPB over 2 hour(s), Rate: 50 mL/hr, Dispensed: 100 mL bag, Site: #1 right forearm. Medication Ordered: KCl IV 20 meq/100mL (Run no faster than 10 units/hr, NOW, Run no faster than 10 mEq/hr). Given 21:03 02/08/2017 Malu Anguiano Medication Administered: KCL [PO] (POTASSIUM CHLORIDE ER), Dose: 20 meq PO. Medication Ordered: KCl PO 20 meq (NOW).
--- NOTE | 2017-02-14 02:20 | ED DISCHARGE INSTRUCTIONS ---
Patient: MICHAEL NGUYEN General Instructions [facility] VisitID: [id number] [address] [place] [address] 51y, F Registration Date/Time: 02/08/2017 Hypokalemia INSTRUCTIONS Warnings: Further evaluation is necessary. GENERAL WARNINGS: Return or contact your physician immediately if your condition worsens or changes unexpectedly, if not improving as expected, or if other problems arise. Your Current Medications: CONTINUE TAKING THE FOLLOWING MEDICATIONS: ASA Oral : 81 mg daily. Carvedilol Phosphate ER Oral : 12.5 mg 2 x daily. Furosemide* : 40 mg 2x daily, 1 1/2 in AM and 1 tab in afternoon. HumaLOG Subcutaneous : 5 units before meals, lunch and dinner only. HumuLIN 70/30 Subcutaneous : Suspension (70-30) 100 unit/mL, 28 units q AM. Prescription Medications: K-Dur 20 mEq: take 1 orally every 24 hours. Dispense five (5). No refills. Substitution is permissible. Follow-up: Follow up with your doctor Sunday in five days as scheduled. Understanding of the discharge instructions verbalized by patient and family. ADDITIONAL INFORMATION Hypokalemia Hypokalemia means a low level of potassium in the blood. This most often occurs in patients who take diuretics (water pills). It can also occur due to severe vomiting or diarrhea. A mild case usually causes no symptoms. It is only found with blood testing. More severe potassium loss causes generalized weakness, muscle or abdominal cramping, heart palpitations (rapid or irregular heartbeats) and low blood pressure. Home Care: 1) Take any potassium supplements prescribed. 2) Eat foods rich in potassium. The highest amount is found in artichoke, baked potatoes, spinach, cantaloupe, honeydew melon, cod, halibut, salmon, and scallops. White, red, or muller beans are also very good sources. A modest amount is found in orange juice, bananas, carrots, and tomato juice. 3) Certain types of diuretics (water pills), such as Lasix (furosemide), require that you take potassium supplements for as long as you take the diuretic pills. If you are taking a diuretic, discuss the need for potassium supplements with your doctor. Follow Up with your doctor for a repeat blood test within the next week or as advised by our staff. Get Prompt Medical Attention if any of the following occur: -- Increased weakness -- Feeling dizzy -- Irregular heartbeat, extra beats or very fast heart rate -- Fainting spell You have been given the following additional information: Hypokalemia (Electronically signed by Charles Roberts MD 02/14/2017 2:20)
--- NOTE | 2017-02-14 02:20 | ED MED RECONCILIATION SUMMARY ---
Patient: MICHAEL NGUYEN Medication Reconciliation Report [facility] VisitID: [id number] [address] [place] [address] 51y, F Registration Date/Time: 02/08/2017 Weight: 92.9 kg Height/Length: 63 in. BMI: 36.3 ALLERGIES: Carafate, Depakote, Gabapentin, Geodon, Januvia, Lamictal, LIsinopril, [place], LOSARTAN, Reglan, Risperidone, Seroquel The patient's Home Medications are listed below: CONTINUE TAKING THE FOLLOWING MEDICATIONS: ASA Oral 81 mg, daily Carvedilol Phosphate ER Oral 12.5 mg, 2 x daily Furosemide 40 mg , 2x daily, 1 1/2 in AM and 1 tab in afternoon HumaLOG Subcutaneous 5 units, before meals, lunch and dinner only HumuLIN 70/30 Subcutaneous ((70-30) 100 unit/mL) 28 units, q AM THE FOLLOWING MEDICATIONS NEED TO BE RECONCILED: Imitrex Oral (100 mg) 1 tablet, PRN Latuda Oral (40 mg) 1 tablet, Q AM Lipitor Oral (20 mg) 1 tablet, at bedtime Magnesium Oral 250 mg , twice daily Mirapex Oral (0.5 mg) 2 tablets, at bedtime Omeprazole Oral (20 mg) 1 tablet, daily Synthroid Oral Victoza Subcutaneous 1.8, q AM Vitamin D 3 2000 IU, 2x a week Zantac Oral (150 mg) 1 tablet, at bedtime Zofran Oral (4 mg) 1 tablet, PRN The source(s) of the original Home Medication information: Not obtained. The following Medications were given to the patient in the Emergency Department: KCL [IVPB] IVPB bolus 0, then 20 meq 50 mL/hr, administered: 02/08/2017 9:03:00 PM KCL [PO] PO 20 meq, administered: 02/08/2017 9:03:00 PM The following Medications were prescribed to the patient: K-Dur 20 mEq: take 1 orally every 24 hours. Dispense five (5). No refills. Substitution is permissible. -- Charles Roberts MD
== END 2017-02-09 01:42 | disposition home or self-care (01) ==
LOC: ED SRH 18:48
DX: E87.6 Hypokalemia (principal); E11.9 Type 2 diabetes mellitus without complications; Z88.8 Allergy status to other drugs, medicaments and biological substances; Z79.4 Long term (current) use of insulin; Z79.82 Long term (current) use of aspirin; Z79.899 Other long term (current) drug therapy
CPT/HCPCS: 90004; 90047; 90616; 91320; 91556; 92235; 92530; 92610; 92710; 92720; 93070; 95059

== ENCOUNTER 2017-02-13 16:17 | Emergency (ER) | payer OTHER ==
--- NOTE | 2017-02-13 22:43 | ED ORDER SUMMARY ---
..... Patient: MICHAEL NGUYEN OrderSheet [facility] VisitID: [id number] [address] [place] [address] 51y, F Registration Date/Time: 02/13/2017 ORDER SHEET Weight: 92.0 kg (stated) Allergies: Carafate, Depakote, Gabapentin, Geodon, Januvia, Lamictal, LIsinopril, [place], LOSARTAN, Reglan, Risperidone, Seroquel GENERAL ORDERS: CBC w Diff Urgent (16:32 02/13/2017 Star Zuleta) (Ack 16:34 Jayson) (16:36 KPage-Kuchan R.N.) CMP Urgent (16:32 02/13/2017 Star Zuleta) (Ack 16:34 Jayson) (16:36 KPage-Kuchan R.N.) UA-Culture if indicated Urgent (16:32 02/13/2017 Star Zuleta) (Ack 16:34 Jayson) (16:36 KPage-Kuchan R.N.) Magnesium Urgent (16:32 02/13/2017 Star Zuleta) (Ack 16:34 Jayson) (16:36 KPage-Kuchan R.N.) BMP Urgent (21:21 02/13/2017 SRoberts R.N. verbal order read back to Star Zuleta) (Ack 21:25 AMcQuoid ER Tech1) (22:25 KPage-Kuchan R.N.) post infusion if potassium MEDICATION ORDERS: Potassium Chloride PO 20 meq (NOW) (18:17 02/13/2017 Star Zuleta) (Ack 18:19 KPage-Kuchan R.N.) (18:37 KPage-Kuchan R.N.) IV FLUIDS: IV Saline Lock (16:32 02/13/2017 Star Zuleta) (16:42 KPage-Kuchan R.N.) Potassium Chloride IV 20 meq/100mL (HIGH ALERT MEDICATION, NOW, Run no faster than 10 mEq/hr) (18:17 02/13/2017 Star Zuleta) (Ack 18:19 KPage-Kujasonn R.N.) (18:36 Allen Eng.Berto.) ORDER SHEET NOTES: [Electronically signed by Mary Kate Quezada R.N. (23:07 02/13/2017)] [Electronically signed by Charles Roberts MD (03:14 02/14/2017)] [Electronically locked/signed by Mary Kate Quezada R.N. (:07 02/13/2017)]
--- NOTE | 2017-02-13 22:43 | ED NURSING NOTES ---
Clinical Report - Nurses [facility] [address] [place] [address] 02/13/2017 16:18 Patient: MICHAEL NGUYEN TRIAGE Triage time 16:28 Feb 13 2017. Acuity: LEVEL 2. Chief Complaint: (pt called from pcp office to come to ED for hypokalemia- pt seen here last for same, at that time K+ was 2.3, pt today was told "It's lower than it was last time"). Alert. No acute distress. SEPSIS SCREEN: Sepsis Screen: negative. Negative (no infection suspected/documented). CHHAYA COMA SCORE: [place] Coma Scale: 15- eyes open spontaneously (4); best verbal response- oriented x 4 (5); best motor response- obeys commands (6). --16:34 Mary Kate Quezada R.N. 16:28 02/13/17. BP: 126/83. HR: 94. RR: 18. O2 saturation: 99%. Temp: 98.3 F. Pain level now: 0/10. --16:34 Mary Kate Quezada R.N. Weight: 92 kg stated. Height/Length: 63 inches Per Patient. BMI: 35.9. --16:32 Mary Kate Quezada R.N. Medications ASA Oral 81 mg, daily. Carvedilol Phosphate ER Oral 12.5 mg, 2 x daily. Furosemide 40 mg , 2x daily (1 1/2 in AM and 1 tab in afternoon). HumaLOG Subcutaneous 5 units, before meals (lunch and dinner only). HumuLIN 70/30 Subcutaneous (Suspension (70-30) 100 unit/mL) 28 units, q AM. Imitrex Oral (Tablet 100 mg) 1 tablet, PRN. Latuda Oral (Tablet 40 mg) 1 tablet, Q AM. Lipitor Oral (Tablet 20 mg) 1 tablet, at bedtime. Magnesium Oral 250 mg , twice daily. Mirapex Oral (Tablet 0.5 mg) 2 tablets, at bedtime. Omeprazole Oral (Tablet Delayed Release 20 mg) 1 tablet, daily. Synthroid Oral. Victoza Subcutaneous 1.8, q AM. Vitamin D 3 2000 IU, 2x a week. Zantac Oral (Tablet 150 mg) 1 tablet, at bedtime. Zofran Oral (Tablet 4 mg) 1 tablet, PRN. --16:31 Mary Kate Quezada R.N. Medication/allergy information source: the patient and patient's family. --16:34 Mary Kate Quezada R.N. Allergies Carafate. Depakote. Gabapentin. Geodon. Januvia. Lamictal. LIsinopril. [place]. LOSARTAN. Reglan. Risperidone. Seroquel. --16:31 Mary Kate Quezada R.N. History Arrived by private vehicle. Historian: patient and family. Accompanied by family. Onset. (ongoing since pt started prednisone for 2 weeks, pt has 5 days left). ( pt reports nausea and "vomiting this morning"). Treatment ELECTRODYNAMICIST: None. PAST MEDICAL HX: Immunizations: up-to-date. Last normal menstrual period- pt had an ablation 6 years ago, no period since. SOCIAL HX: Never smoker. Occasional alcohol use; consumes one liquor. No infectious disease exposure. ABUSE ASSESSMENT: No report of abuse. SELF HARM ASSESSMENT: A self harm assessment was performed. The patient answered "no" to the question "Have you recently felt down, depressed, or hopeless?", "Have you noticed less interest or pleasure in doing things?", "Do you have thoughts of harming or killing yourself?", "Are you here because you tried to hurt yourself?", "Have you ever tried to hurt yourself before today?", "Have you recently had thoughts about harming or killing others?" and "Do you have any dangerous items in your possession?". FALL RISK ASSESSMENT: Fall risk assessment completed. No fall risk identified. NUTRITIONAL RISK ASSESSMENT: The nutritional risk assessment revealed no deficiencies. FUNCTIONAL ASSESSMENT: Functional assessment: no impairments noted. LEARNING NEEDS ASSESSMENT: The learning needs assessment revealed no barriers. SKIN INTEGRITY ASSESSMENT: Skin integrity risk assessment completed. No skin integrity risk identified. --16:34 Mary Kate Quezada R.N. PROBLEMS: Hypokalemia. Suicidal Ideation. Depression. Dehydration. Chest Wall Pain. Asthma. Bipolar Disorder. Hypothyroidism. Diabetes Mellitus. --16:32 Mary Kate Quezada R.N. ADDITIONAL SURGERIES: Cataract Surgery. Tonsillectomy. Uterine ablation . --16:32 Mary Kate Quezada R.N. Interventions ID and allergy band on patient. To treatment room. --16:34 Mary Kate Quezada R.N. PHYSICAL ASSESSMENT Ambulatory to room. Patient gowned. GENERAL / NEURO / PSYCH: Alert. Oriented X 4. Appears in no acute distress. HEENT: Pupils equal, round and reactive to light. No facial asymmetry noted. Mucous membranes are pink. RESPIRATORY: Respirations not labored. Chest nontender. Breath sounds within normal limits. CVS: Capillary refill less than 2 seconds. Pulses within normal limits. GI / : Abdomen nontender and normal bowel sounds. SKIN: Skin intact. Skin is warm and dry. Normal skin turgor. --16:35 Mary Kate Quezada R.N. NURSING PROGRESS NOTES monitoring manager, pulse oximeter and NIBP monitor placed on patient; cardiac sonographer- Lead II; monitor alarms on. Reassurance given. Two patient identifiers checked. Call light placed in reach. Side rails up x 1. Bed placed in lowest position. Brakes of bed on. Patient ready for evaluation- chart flagged. Patient waiting for evaluation. --16:35 Mary Kate Quezada R.N. ( pts friend called [facility] to get lab results, today K+ 2.7 , [place] to fax results to [facility] from Dr Barnes cardiology at [facility]). --16:41 Mary Kate Quezada R.N. 16:42 02/13/2017 Site #1 started via IV wrist with an 22g angiocath; one attempt. Blood drawn: rainbow set. Labeled in the presence of the patient and sent to the lab. Saline lock flushed with 10 mL saline (paced by Aleshia AMATO). --16:42 Mary Kate Quezada R.N. Patient ID band checked for patient name and birthdate: patient confirmed. Instructions provided to collect clean catch urine and patient verbalized understanding. Clean catch urine collected with return of yellow-colored urine; sample sent to lab for urinalysis and culture. --17:08 Yemi, Mounika, ER Tech1 Critical value relayed to ED by 17:14 Feb 13 2017 Verenice espinal. Critical value received by Mary Kate AMATO. K: 2.8. Critical value read back. Verified lab result and patient ID. ED physician notifed of critical value. --17:15 Mary Kate Quezada R.N. 18:01 02/13/17. BP: 134/77. HR: 85. RR: 15. O2 saturation: 99%. Pain level now: 0/10. --18:03 Mary Kate Quezada R.N. Cardiac rhythm: (SR). ( pt playing on ipad, no c/o voiced, waiting MD s poc for further care). --18:03 Mary Kate Quezada R.N. 18:30 02/13/2017 Started 20 meq of Potassium Chloride (Potassium Chloride) IVPB; at 33 mL/hr via site #1 via IV pump. Allergies verified and confirmed 5 rights. IV patency established. IV site checked: no pain, redness, or swelling. IV flushed thoroughly pre- and post-medication administration (drip rate started at 50ml/hr, pt immediately began having a burning sensation, rate decreased to 33ml/hr and pt tolerating well). --18:36 Mary Kate Quezada R.N. 18:32 02/13/2017 Potassium Chloride (Potassium Chloride ER) PO 20 meq given. Allergies verified and confirmed 5 rights. --18:37 Mary Kate Quezada R.N. ( K+ rider infusing as ordered, pt tolerating infusion at 33 ml/hr, pt friend remains at bedside, pt watching tv, no c/o voiced, continuing to monitor.). --19:33 Mary Kate Quezada R.N. Cardiac rhythm: (SR). Reassurance given. Two patient identifiers checked. Call light placed in reach. Side rails up x 1. Bed placed in lowest position. Brakes of bed on. --19:35 Mary Kate Quezada R.N. ( pt up in room walking around the bed, pt has removed the cardiac leads again after I taped them down - "they wont stick" pt notified as to why we monitor cardiac rhythm when K+ is low. pt has approximately 28 ml left to infuse on pump, plan upon completion is to redraw a bmp per ). --20:46 Mary Kate Quezada R.N. monitoring manager, pulse oximeter and NIBP monitor placed on patient; cardiac sonographer- Lead II and V5; monitor alarms on. Patient gowned. Reassessment after medication administered. She is calm and has had no adverse reaction. RESPIRATORY: No respiratory distress. SKIN: Skin is warm. Skin color within normal limits. Call light placed in reach. Bed placed in lowest position. Brakes of bed on. --20:47 Mary Kate Quezada R.N. ( pt provided sandwich, cheese and milk, pt waiting lab results drawn by foundry laborer coreroom.). --21:48 Mary Kate Quezada R.N. 20:34 02/13/17. --22:59 Mary Kate Quezada R.N. 21:58 02/13/2017 Potassium Chloride IVPB Response: no adverse reaction. --22:23 Mary Kate Quezada R.N. 22:00 02/13/2017 Potassium Chloride PO Response: no adverse reaction. --22:25 Mary Kate Quezada R.N. 22:07 02/13/2017 Potassium Chloride IVPB Discontinued: infused. Total amount infused: 100 mL. IV patency established. IV site checked: no pain, redness, or swelling. IV flushed thoroughly. --22:22 Mary Kate Quezada R.N. 18:01 02/13/17. BP: 134/77. HR: 85. RR: 15. O2 saturation: 99%. Pain level now: 0/10. 16:28 02/13/17. BP: 126/83. HR: 94. RR: 18. O2 saturation: 99%. Temp: 98.3 F. Pain level now: 0/10. --22:57 Mary Kate Quezada R.N. 22:59 02/13/17. BP: 149/77. HR: 86. RR: 17. O2 saturation: 98%. Pain level now: 0/10. --22:59 Mary Kate Quezada R.N. 20:34 02/13/17. BP: 131/74. HR: 87. RR: 17. O2 saturation: 98%. Temp: 98.4 F. Pain level now: 0/10. --23:00 Mary Kate Quezada R.N. 22:59 02/13/17. BP: 149/77. HR: 86. RR: 17. O2 saturation: 98%. Pain level now: 0/10. 18:01 02/13/17. BP: 134/77. HR: 85. RR: 15. O2 saturation: 99%. Pain level now: 0/10. 16:28 02/13/17. BP: 126/83. HR: 94. RR: 18. O2 saturation: 99%. Temp: 98.3 F. Pain level now: 0/10. --23:00 Mary Kate Quezada R.N. DISPOSITION / DISCHARGE Departure time: 2255Feb 13 2017. Condition at departure: improved. No learning barriers present. Discharge instructions provided and reviewed with industrial plant custodian and the patient. Reviewed medication(s) side effects and course information. Prescription(s) given to the patient. Patient and industrial plant custodian verbalized understanding. Written instructions provided in [place]. The patient was discharged by the physician. She was discharged home and accompanied by industrial plant custodian. She left the Emergency Department ambulatory and via private vehicle. [employer] Consultant driving. --23:01 Mary Kate Quezada R.N. 22:46 02/13/2017 Site #1 removed upon discharge. Bandaid applied. --23:02 Mary Kate Quezada R.N. Locked/Released at 02/13/2017 23:07 by Mary Kate Quezada R.N.
--- NOTE | 2017-02-13 22:43 | ED CLINICAL REPORT ---
Clinical Report - Physicians/Mid Levels [facility] [address] [place], [place] [address] 02/13/2017 16:18 Patient: MICHAEL NGUYEN Time Seen: 16:31; initial patient contact. Arrived- By private vehicle. Historian- patient. HISTORY OF PRESENT ILLNESS Chief Complaint: ABNORMAL POTASSIUM. This started just prior to arrival and is still present. It was abrupt in onset. At its maximum, severity described as severe. When seen in the E.D., severity described as severe. Modifying factors. Not worsened by anything. Not relieved by anything. No loss of appetite, fatigue or weakness. Similar symptoms previously: Many times. Recent medical care: The patient was seen recently at this facility in the emergency department. Seen for similar symptoms. REVIEW OF SYSTEMS No nausea, vomiting, diarrhea or headache. All systems otherwise negative, except as recorded above. PAST HISTORY Hypokalemia. Suicidal Ideation. Depression. Dehydration. Chest Wall Pain. Asthma. Bipolar Disorder. Hypothyroidism. Diabetes Mellitus. ADDITIONAL SURGERIES: Cataract Surgery. Tonsillectomy. Uterine ablation. SOCIAL HISTORY Never smoker. Occasional alcohol use. ADDITIONAL NOTES The nursing notes have been reviewed. PHYSICAL EXAM Vital Signs: 02/13/2017 16:28 BP: 126/83. HR: 94. RR: 18. O2 saturation: 99%. Temp: 98.3 F. Pain level now: 0/10. Have been reviewed as normal. Appearance: Alert. No acute distress. Eyes: Eyes normal inspection. ENT: Pharynx normal. CVS: Normal heart rate and rhythm. Heart sounds normal. Respiratory: No respiratory distress. Breath sounds normal. Abdomen: No visible injury. Soft and nontender. Bowel sounds normal. No organomegaly. No mass. Skin: Skin warm and dry. Normal skin color. Extremities: No calf tenderness. No lower extremity edema. Neuro: Oriented X 3. No motor deficit. LABS, X-RAYS, AND EKG Laboratory Tests: UA-Culture if indicated: (AVIVA: 02/13/2017 17:00) ( MsgRcvd 02/13/2017 17:44) Final results Test Result Flag Units (Reference) URINE COLOR YELLOW URINE APPEARANCE SL CLOUDY URINE GLUCOSE 1+ (NEGATIVE) URINE BILIRUBIN NEGATIVE (NEGATIVE) URINE KETONE NEGATIVE (NEGATIVE) URINE SPECIFIC GRAVITY 1.010 (1.010-1.030) URINE PH 6.0 (5.0-8.0) URINE PROTEIN NEGATIVE (NEGATIVE) URINE UROBILINOGEN 0.2 EU/dL (0.2-1.0) URINE NITRITE NEGATIVE (NEGATIVE) URINE BLOOD NEGATIVE (NEGATIVE) URINE LEUK ESTERASE NEGATIVE (NEGATIVE) URINE RBC NONE SEEN rbc/hpf (0-1) URINE WBC 0-1 wbc/hpf (0-1) URINE EPITHELIAL CELLS >15 EPI/hpf (0-5) URINE BACTERIA FEW (1+) (NONE SEEN) URINE COMMENT CULT NOT INDICATED URINE CULTURES ARE SET-UP BASED ON THE FOLLOWING CRITERIA:POSITIVE NITRITEPOSITIVE LEUKOCYTE ESTERASEGREATER THAN 10 WHITE BLOOD CELLSMODERATE (2+) OR GREATER BACTERIA CBC w Diff: (AVIVA: 02/13/2017 16:43) ( [facility] [place]13[place] 16:51) Final results Test Result Flag Units (Reference) WHITE BLOOD COUNT 9.2 K/uL (4.5-11.5) RED BLOOD COUNT 4.13 M/uL (4.00-5.20) HEMOGLOBIN 12.1 gm/dL (12.0-16.0) HEMATOCRIT 36.5 % (36.0-46.0) MEAN CELL VOLUME 89 fL (80-100) MEAN CORPUSCULAR HGB 29 pg (26-34) MEAN CORPUSCULAR HGB CONC 33 g/dL (31-37) RED CELL DISTRIBUTION WIDTH 13.9 % (11.6-14.8) PLATELET COUNT 327 K/uL (150-400) NEUTROPHIL % 81.8 H % (50-75) LYMPH % 13.1 L % (25-40) MONO % 4.3 % (3-14) EOSINOPHIL % 0.1 % (0-4) BASOPHIL % 0.7 % (0-2) BMP: (AVIVA: 02/13/2017 21:30) ( [facility] [place] 02/13/2017 21:52) Final results Test Result Flag Units (Reference) GLUCOSE 311 H mg/dL (70-110) BUN 46 H mg/dL (7-18) CREATININE 2.7 H mg/dL (0.6-1.3) Estimated GFR 19.75 mL/min Estimated GFR- 23.93 mL/min Note: Persistent reduction over 3 months in eGFR<60 mL/min/1.73 m2 defines CKD. Patients with eGFR values>=60 mL/min/1.73 m2 may also have CKD if evidence ofpersistent proteinuria. Additional information may be foundat www.kidney.org. SODIUM 135 L mmol/L (136-145) POTASSIUM 3.0 L mmol/L (3.5-5.1) CHLORIDE 92 L mmol/L (98-107) CARBON DIOXIDE 34 H mmol/L (21-32) CALCIUM 8.6 mg/dL (8.5-10.1) CMP: (AVIVA: 02/13/2017 16:43) ( MsgRcvd 02/13/2017 17:14) Final results Test Result Flag Units (Reference) GLUCOSE 457 H mg/dL (70-110) BUN 48 H mg/dL (7-18) CREATININE 3.1 H mg/dL (0.6-1.3) Estimated GFR 16.84 mL/min Estimated GFR- 20.40 mL/min Note: Persistent reduction over 3 months in eGFR<60 mL/min/1.73 m2 defines CKD. Patients with eGFR values>=60 mL/min/1.73 m2 may also have CKD if evidence ofpersistent proteinuria. Additional information may be foundat www.[email or web address].org. SODIUM 132 L mmol/L (136-145) POTASSIUM 2.8 *L mmol/L (3.5-5.1) CRITICAL RESULTS CALLEDCalled to EVELINEER 02/13/17 1714Were 2 patient identifiers used? YWas the result read back? Y CHLORIDE 87 L mmol/L (98-107) CARBON DIOXIDE 37 H mmol/L (21-32) CALCIUM 9.0 mg/dL (8.5-10.1) TOTAL PROTEIN 7.2 g/dL (6.4-8.2) ALBUMIN 3.4 g/dL (3.3-5.0) BILIRUBIN, TOTAL 0.4 mg/dL (0.0-1.0) ALKALINE PHOSPHATASE 87 U/L (46-116) AST (SGOT) 28 U/L (15-37) ALT (SGPT) 48 U/L (12-78) MAGNESIUM 2.1 mg/dL (1.8-2.4) . PROGRESS AND PROCEDURES Course of Care: 21:31 02/13/17. Case D/W Dr. Valdes the Pt's history, physical, and lab findings. Awaiting completion of potassium drip to repeat BMP. Dr. Falcon and I reviewed the patient's history, examination findings and the results of her studies. I subsequently reviewed her history with her and examined her and my findings were consistent with those noted by Dr. Falcon. I subsequently followed up on the repeat lab work and the results are as noted. Given that this is the second event where she has been sent here for this, I suggested that she decrease the dose of her Lasix. She also tells me that she was told to stop her metolazone. I have instructed her to follow up with her primary care provider to continue to follow her potassium levels closely. Patient/family counseled. Old medical records reviewed. Disposition: Discharged. Condition: stable. CLINICAL IMPRESSION Renal insufficiency. Hypokalemia INSTRUCTIONS Warnings: Further evaluation is necessary. GENERAL WARNINGS: Return or contact your physician immediately if your condition worsens or changes unexpectedly, if not improving as expected, or if other problems arise. Your Current Medications: CHANGE THE FOLLOWING MEDICATIONS TO: Furosemide* : 40 mg every AM. CONTINUE TAKING THE FOLLOWING MEDICATIONS: ASA Oral : 81 mg daily. Carvedilol Phosphate ER Oral : 12.5 mg 2 x daily. HumaLOG Subcutaneous : 5 units before meals, lunch and dinner only. HumuLIN 70/30 Subcutaneous : Suspension (70-30) 100 unit/mL, 28 units q AM. Prescription Medications: K-Dur 20 mEq: take 1 orally every 24 hours. Dispense five (5). No refills. Substitution is permissible. Follow-up: Follow up with your doctor tomorrow. Call for the next available appointment. Understanding of the discharge instructions verbalized by patient. (Electronically signed by Charles Roberts MD 02/14/2017 3:14)
--- NOTE | 2017-02-13 22:43 | ED NURSING NOTES ---
Clinical Report - Nurses [facility] [address] [address] 02/13/2017 16:18 Patient: MICHAEL NGUYEN TRIAGE Triage time 16:28 Feb 13 2017. Acuity: LEVEL 2. Chief Complaint: (pt called from pcp office to come to ED for hypokalemia- pt seen here last for same, at that time K+ was 2.3, pt today was told "It's lower than it was last time"). Alert. No acute distress. SEPSIS SCREEN: Sepsis Screen: negative. Negative (no infection suspected/documented). CHHAYA COMA SCORE: [place] Coma Scale: 15- eyes open spontaneously (4); best verbal response- oriented x 4 (5); best motor response- obeys commands (6). --16:34 Mary Kate Quezada R.N. 16:28 02/13/17. BP: 126/83. HR: 94. RR: 18. O2 saturation: 99%. Temp: 98.3 F. Pain level now: 0/10. --16:34 Mary Kate Quezada R.N. Weight: 92 kg stated. Height/Length: 63 inches Per Patient. BMI: 35.9. --16:32 Mary Kate Quezada R.N. Medications ASA Oral 81 mg, daily. Carvedilol Phosphate ER Oral 12.5 mg, 2 x daily. Furosemide 40 mg , 2x daily (1 1/2 in AM and 1 tab in afternoon). HumaLOG Subcutaneous 5 units, before meals (lunch and dinner only). HumuLIN 70/30 Subcutaneous (Suspension (70-30) 100 unit/mL) 28 units, q AM. Imitrex Oral (Tablet 100 mg) 1 tablet, PRN. Latuda Oral (Tablet 40 mg) 1 tablet, Q AM. Lipitor Oral (Tablet 20 mg) 1 tablet, at bedtime. Magnesium Oral 250 mg , twice daily. Mirapex Oral (Tablet 0.5 mg) 2 tablets, at bedtime. Omeprazole Oral (Tablet Delayed Release 20 mg) 1 tablet, daily. Synthroid Oral. Victoza Subcutaneous 1.8, q AM. Vitamin D 3 2000 IU, 2x a week. Zantac Oral (Tablet 150 mg) 1 tablet, at bedtime. Zofran Oral (Tablet 4 mg) 1 tablet, PRN. --16:31 Mary Kate Quezada R.N. Medication/allergy information source: the patient and patient's family. --16:34 Mary Kate Quezada R.N. Allergies Carafate. Depakote. Gabapentin. Geodon. Januvia. Lamictal. LIsinopril. Tatum. LOSARTAN. Reglan. Risperidone. Seroquel. --16:31 Mary Kate Quezada R.N. History Arrived by private vehicle. Historian: patient and family. Accompanied by family. Onset. (ongoing since pt started prednisone for 2 weeks, pt has 5 days left). ( pt reports nausea and "vomiting this morning"). Treatment [employer]EE[employer]LE [employer]ER: None. PAST MEDICAL HX: Immunizations: up-to-date. Last normal menstrual period- pt had an ablation 6 years ago, no period since. SOCIAL HX: Never smoker. Occasional alcohol use; consumes one liquor. No infectious disease exposure. ABUSE ASSESSMENT: No report of abuse. SELF HARM ASSESSMENT: A self harm assessment was performed. The patient answered "no" to the question "Have you recently felt down, depressed, or hopeless?", "Have you noticed less interest or pleasure in doing things?", "Do you have thoughts of harming or killing yourself?", "Are you here because you tried to hurt yourself?", "Have you ever tried to hurt yourself before today?", "Have you recently had thoughts about harming or killing others?" and "Do you have any dangerous items in your possession?". FALL RISK ASSESSMENT: Fall risk assessment completed. No fall risk identified. NUTRITIONAL RISK ASSESSMENT: The nutritional risk assessment revealed no deficiencies. FUNCTIONAL ASSESSMENT: Functional assessment: no impairments noted. LEARNING NEEDS ASSESSMENT: The learning needs assessment revealed no barriers. SKIN INTEGRITY ASSESSMENT: Skin integrity risk assessment completed. No skin integrity risk identified. --16:34 Mary Kate Quezada R.N. PROBLEMS: Hypokalemia. Suicidal Ideation. Depression. Dehydration. Chest Wall Pain. Asthma. Bipolar Disorder. Hypothyroidism. Diabetes Mellitus. --16:32 Mary Kate Quezada R.N. ADDITIONAL SURGERIES: Cataract Surgery. Tonsillectomy. Uterine ablation . --16:32 Mary Kate Quezada R.N. Interventions ID and allergy band on patient. To treatment room. --16:34 Mary Kate Quezada R.N. PHYSICAL ASSESSMENT Ambulatory to room. Patient gowned. GENERAL / NEURO / PSYCH: Alert. Oriented X 4. Appears in no acute distress. HEENT: Pupils equal, round and reactive to light. No facial asymmetry noted. Mucous membranes are pink. RESPIRATORY: Respirations not labored. Chest nontender. Breath sounds within normal limits. CVS: Capillary refill less than 2 seconds. Pulses within normal limits. GI / : Abdomen nontender and normal bowel sounds. SKIN: Skin intact. Skin is warm and dry. Normal skin turgor. --16:35 Mary Kate Quezada R.N. NURSING PROGRESS NOTES monitor and storage bin tender, pulse oximeter and NIBP monitor placed on patient; secured entrance monitor- Lead II; monitor alarms on. Reassurance given. Two patient identifiers checked. Call light placed in reach. Side rails up x 1. Bed placed in lowest position. Brakes of bed on. Patient ready for evaluation- chart flagged. Patient waiting for evaluation. --16:35 Mary Kate Quezada R.N. ( pts friend called [facility] to get lab results, today K+ 2.7 , [place] to fax results to [facility] from Dr Barnes cardiology at [facility]). --16:41 Mary Kate Quezada R.N. 16:42 02/13/2017 Site #1 started via IV wrist with an 22g angiocath; one attempt. Blood drawn: rainbow set. Labeled in the presence of the patient and sent to the lab. Saline lock flushed with 10 mL saline (paced by Aleshia AMATO). --16:42 Mary Kate Quezada R.N. Patient ID band checked for patient name and birthdate: patient confirmed. Instructions provided to collect clean catch urine and patient verbalized understanding. Clean catch urine collected with return of yellow-colored urine; sample sent to lab for urinalysis and culture. --17:08 Yemi, Mounika, ER Tech1 Critical value relayed to ED by 17:14 Feb 13 2017 Verenice espinal. Critical value received by Mary Kate AMATO. K: 2.8. Critical value read back. Verified lab result and patient ID. ED physician notifed of critical value. --17:15 Mary Kate Quezada R.N. 18:01 02/13/17. BP: 134/77. HR: 85. RR: 15. O2 saturation: 99%. Pain level now: 0/10. --18:03 Mary Kate Quezada R.N. Cardiac rhythm: (SR). ( pt playing on ipad, no c/o voiced, waiting MD s poc for further care). --18:03 Mary Kate Quezada R.N. 18:30 02/13/2017 Started 20 meq of Potassium Chloride (Potassium Chloride) IVPB; at 33 mL/hr via site #1 via IV pump. Allergies verified and confirmed 5 rights. IV patency established. IV site checked: no pain, redness, or swelling. IV flushed thoroughly pre- and post-medication administration (drip rate started at 50ml/hr, pt immediately began having a burning sensation, rate decreased to 33ml/hr and pt tolerating well). --18:36 Mary Kate Quezada R.N. 18:32 02/13/2017 Potassium Chloride (Potassium Chloride ER) PO 20 meq given. Allergies verified and confirmed 5 rights. --18:37 Mary Kate Quezada R.N. ( K+ rider infusing as ordered, pt tolerating infusion at 33 ml/hr, pt friend remains at bedside, pt watching tv, no c/o voiced, continuing to monitor.). --19:33 Mary Kate Quezada R.N. Cardiac rhythm: (SR). Reassurance given. Two patient identifiers checked. Call light placed in reach. Side rails up x 1. Bed placed in lowest position. Brakes of bed on. --19:35 Mary Kate Quezada R.N. ( pt up in room walking around the bed, pt has removed the cardiac leads again after I taped them down - "they wont stick" pt notified as to why we monitor cardiac rhythm when K+ is low. pt has approximately 28 ml left to infuse on pump, plan upon completion is to redraw a bmp per ). --20:46 Mary Kate Quezada R.N. monitor and storage bin tender, pulse oximeter and NIBP monitor placed on patient; secured entrance monitor- Lead II and V5; monitor alarms on. Patient gowned. Reassessment after medication administered. She is calm and has had no adverse reaction. RESPIRATORY: No respiratory distress. SKIN: Skin is warm. Skin color within normal limits. Call light placed in reach. Bed placed in lowest position. Brakes of bed on. --20:47 Mary Kate Quezada R.N. ( pt provided sandwich, cheese and milk, pt waiting lab results drawn by laboratory mechanic helper.). --21:48 Mary Kate Quezada R.N. 20:34 02/13/17. --22:59 Mary Kate Quezada R.N. 21:58 02/13/2017 Potassium Chloride IVPB Response: no adverse reaction. --22:23 Mary Kate Quezada R.N. 22:00 02/13/2017 Potassium Chloride PO Response: no adverse reaction. --22:25 Mary Kate Quezada R.N. 22:07 02/13/2017 Potassium Chloride IVPB Discontinued: infused. Total amount infused: 100 mL. IV patency established. IV site checked: no pain, redness, or swelling. IV flushed thoroughly. --22:22 Mary Kate Quezada R.N. 18:01 02/13/17. BP: 134/77. HR: 85. RR: 15. O2 saturation: 99%. Pain level now: 0/10. 16:28 02/13/17. BP: 126/83. HR: 94. RR: 18. O2 saturation: 99%. Temp: 98.3 F. Pain level now: 0/10. --22:57 Mary Kate Quezada R.N. 22:59 02/13/17. BP: 149/77. HR: 86. RR: 17. O2 saturation: 98%. Pain level now: 0/10. --22:59 Mary Kate Quezada R.N. 20:34 02/13/17. BP: 131/74. HR: 87. RR: 17. O2 saturation: 98%. Temp: 98.4 F. Pain level now: 0/10. --23:00 Mary Kate Quezada R.N. 22:59 02/13/17. BP: 149/77. HR: 86. RR: 17. O2 saturation: 98%. Pain level now: 0/10. 18:01 02/13/17. BP: 134/77. HR: 85. RR: 15. O2 saturation: 99%. Pain level now: 0/10. 16:28 02/13/17. BP: 126/83. HR: 94. RR: 18. O2 saturation: 99%. Temp: 98.3 F. Pain level now: 0/10. --23:00 Mary Kate Quezada R.N. DISPOSITION / DISCHARGE Departure time: 2255Feb 13 2017. Condition at departure: improved. No learning barriers present. Discharge instructions provided and reviewed with fish packer and the patient. Reviewed medication(s) side effects and course information. Prescription(s) given to the patient. Patient and fish packer verbalized understanding. Written instructions provided in Uzbek. The patient was discharged by the physician. She was discharged home and accompanied by fish packer. She left the Emergency Department ambulatory and via private vehicle. Court Deputy driving. --23:01 Mary Kate Quezada R.N. 22:46 02/13/2017 Site #1 removed upon discharge. Bandaid applied. --23:02 Mary Kate Quezada R.N. Locked/Released at 02/13/2017 23:07 by Mary Kate Quezada R.N.
--- NOTE | 2017-02-13 22:43 | ED ORDER SUMMARY ---
..... Patient: MICHAEL NGUYEN OrderSheet [facility] VisitID: [id number] [address] [place] [address] 51y, F Registration Date/Time: 02/13/2017 ORDER SHEET Weight: 92.0 kg (stated) Allergies: Carafate, Depakote, Gabapentin, Geodon, Januvia, Lamictal, LIsinopril, Grindstone, LOSARTAN, Reglan, Risperidone, Seroquel GENERAL ORDERS: CBC w Diff Urgent (16:32 02/13/2017 Star Zuleta) (Ack 16:34 Jayson) (16:36 KPage-Kuchan R.N.) CMP Urgent (16:32 02/13/2017 Star Zuleta) (Ack 16:34 Jayson) (16:36 KPage-Kuchan R.N.) UA-Culture if indicated Urgent (16:32 02/13/2017 Star Zuleta) (Ack 16:34 Jayson) (16:36 KPage-Kuchan R.N.) Magnesium Urgent (16:32 02/13/2017 Star Zuleta) (Ack 16:34 Jayson) (16:36 KPage-Kuchan R.N.) BMP Urgent (21:21 02/13/2017 SRoberts R.N. verbal order read back to Star Zuleta) (Ack 21:25 AMcQuoid ER Tech1) (22:25 KPage-Kuchan R.N.) post infusion if potassium MEDICATION ORDERS: Potassium Chloride PO 20 meq (NOW) (18:17 02/13/2017 Star Zuleta) (Ack 18:19 KPage-Kuchan R.N.) (18:37 KPage-Kuchan R.N.) IV FLUIDS: IV Saline Lock (16:32 02/13/2017 Star Zuleta) (16:42 KPage-Kuchan R.N.) Potassium Chloride IV 20 meq/100mL (HIGH ALERT MEDICATION, NOW, Run no faster than 10 mEq/hr) (18:17 02/13/2017 Star Zuleta) (Ack 18:19 KPage-Kujasonn R.N.) (18:36 Allen Eng.Berto.) ORDER SHEET NOTES: [Electronically signed by Mary Kate Quezada R.N. (23:07 02/13/2017)] [Electronically signed by Charles Roberts MD (03:14 02/14/2017)] [Electronically locked/signed by Mary Kate Quezada R.N. (:07 02/13/2017)]
--- NOTE | 2017-02-14 03:14 | ED DISCHARGE INSTRUCTIONS ---
Patient: MICHAEL NGUYEN General Instructions [facility] VisitID: [id number] [address] [place] [address] 51y, F Registration Date/Time: 02/13/2017 Renal insufficiency. Hypokalemia INSTRUCTIONS Warnings: Further evaluation is necessary. GENERAL WARNINGS: Return or contact your physician immediately if your condition worsens or changes unexpectedly, if not improving as expected, or if other problems arise. Your Current Medications: CHANGE THE FOLLOWING MEDICATIONS TO: Furosemide* : 40 mg every AM. CONTINUE TAKING THE FOLLOWING MEDICATIONS: ASA Oral : 81 mg daily. Carvedilol Phosphate ER Oral : 12.5 mg 2 x daily. HumaLOG Subcutaneous : 5 units before meals, lunch and dinner only. HumuLIN 70/30 Subcutaneous : Suspension (70-30) 100 unit/mL, 28 units q AM. Prescription Medications: K-Dur 20 mEq: take 1 orally every 24 hours. Dispense five (5). No refills. Substitution is permissible. Follow-up: Follow up with your doctor tomorrow. Call for the next available appointment. Understanding of the discharge instructions verbalized by patient. ADDITIONAL INFORMATION Renal Insufficiency The role of the kidneys is to remove waste products and excess water from the body. When the kidneys do not function normally, waste products build up in the blood.The early stage of this process is called renal insufficiency . If renal insufficiency worsens it can lead to chronic renal failure. This allows excess water, waste and toxic substances to build up in the body. This can become a threat to life, requiring dialysis or a kidney transplant to stay alive. Diabetes is the leading causes of renal insufficiency. Other causes include high blood pressure, hardening of the arteries, lupus, inflammation of the blood vessels (vasculitis), prior viral and bacterial infections, and others. Certain ifqu-soz-koykmsn pain medicines can cause renal failure when taken often over a long period of time. These include aspirin, ibuprofen (Advil, Motrin) and related anti-inflammatory medicines. Home Care: If you have diabetes, talk to your doctor about the quality of your blood sugar control.Ask about any changes needed to your diet or medicines. If you have high blood pressure: Take your blood pressure medicine. Take up a regular exercise program that you enjoy.Check with your doctor to be sure your planned exercise program is right for you. Reduce your salt (sodium) intake.Your doctor can tell you how much salt per day is safe for you. If you are overweight, talk to your doctor about a weight loss plan. If you smoke, you must quit.Smoking worsens kidney disease.Talk to your doctor about ways to help you quit.For more information, visit the following links: www.smokefree.gov/pubs/clearing_the_air.pdf www.smokefree.gov www.[employer].com Talk to your doctor about any dietary restrictions advised. In general, it is advisable to limit protein, salt, potassium and phosphorus.Avoid excess fluids. Do not add salt at the table and avoid salty foods.A calcium supplement may be prescribed to protect your bones from osteoporosis. Avoid the following over the counter medicines, or consult your doctor before using: Aspirin and anti-inflammatory drugs such as ibuprofen (Advil, Motrin), naprosyn (Aleve); [Short term use of acetaminophen (Tylenol) for fever or pain is okay.] Laxatives and antacids containing magnesium or aluminum (Mylanta, Maalox) Avoid Fleet or phosphosoda enemas which contain phosphorus Certain stomach acid-blocking medicine such as cimetidine (Tagamet), ranitidine (Zantac) Decongestants containing pseudoephedrine (such as some forms of Sudafed or Actifed) Herbal supplements Follow Up with your doctor or as advised by our staff. Contact one of the following for more information. [place] [employer] [phone] www.aakp.org National Kidney Foundation www.kidney.org Return Promptly or contact your doctor if any of the following occurs: Nausea or vomiting Severe weakness, dizziness, fainting, drowsiness or confusion Chest pain or shortness of breath Unexpected weight gain or swelling in the legs, ankles or around the eyes Heart beating fast, slow or irregularly Decrease or loss in urine output Hypokalemia Hypokalemia means a low level of potassium in the blood. This most often occurs in patients who take diuretics (water pills). It can also occur due to severe vomiting or diarrhea. A mild case usually causes no symptoms. It is only found with blood testing. More severe potassium loss causes generalized weakness, muscle or abdominal cramping, heart palpitations (rapid or irregular heartbeats) and low blood pressure. Home Care: 1) Take any potassium supplements prescribed. 2) Eat foods rich in potassium. The highest amount is found in artichoke, baked potatoes, spinach, cantaloupe, honeydew melon, cod, halibut, salmon, and scallops. White, red, or muller beans are also very good sources. A modest amount is found in orange juice, bananas, carrots, and tomato juice. 3) Certain types of diuretics (water pills), such as Lasix (furosemide), require that you take potassium supplements for as long as you take the diuretic pills. If you are taking a diuretic, discuss the need for potassium supplements with your doctor. Follow Up with your doctor for a repeat blood test within the next week or as advised by our staff. Get Prompt Medical Attention if any of the following occur: -- Increased weakness -- Feeling dizzy -- Irregular heartbeat, extra beats or very fast heart rate -- Fainting spell You have been given the following additional information: Renal Insufficiency Hypokalemia (Electronically signed by Charles Roberts MD 02/14/2017 3:14)
--- NOTE | 2017-02-14 03:14 | ED DISCHARGE INSTRUCTIONS ---
Patient: MICHAEL NGUYEN General Instructions [facility] VisitID: [id number] [address] [place] [address] 51y, F Registration Date/Time: 02/13/2017 Renal insufficiency. Hypokalemia INSTRUCTIONS Warnings: Further evaluation is necessary. GENERAL WARNINGS: Return or contact your physician immediately if your condition worsens or changes unexpectedly, if not improving as expected, or if other problems arise. Your Current Medications: CHANGE THE FOLLOWING MEDICATIONS TO: Furosemide* : 40 mg every AM. CONTINUE TAKING THE FOLLOWING MEDICATIONS: ASA Oral : 81 mg daily. Carvedilol Phosphate ER Oral : 12.5 mg 2 x daily. HumaLOG Subcutaneous : 5 units before meals, lunch and dinner only. HumuLIN 70/30 Subcutaneous : Suspension (70-30) 100 unit/mL, 28 units q AM. Prescription Medications: K-Dur 20 mEq: take 1 orally every 24 hours. Dispense five (5). No refills. Substitution is permissible. Follow-up: Follow up with your doctor tomorrow. Call for the next available appointment. Understanding of the discharge instructions verbalized by patient. ADDITIONAL INFORMATION Renal Insufficiency The role of the kidneys is to remove waste products and excess water from the body. When the kidneys do not function normally, waste products build up in the blood.The early stage of this process is called renal insufficiency . If renal insufficiency worsens it can lead to chronic renal failure. This allows excess water, waste and toxic substances to build up in the body. This can become a threat to life, requiring dialysis or a kidney transplant to stay alive. Diabetes is the leading causes of renal insufficiency. Other causes include high blood pressure, hardening of the arteries, lupus, inflammation of the blood vessels (vasculitis), prior viral and bacterial infections, and others. Certain votl-zyt-itmlhie pain medicines can cause renal failure when taken often over a long period of time. These include aspirin, ibuprofen (Advil, Motrin) and related anti-inflammatory medicines. Home Care: If you have diabetes, talk to your doctor about the quality of your blood sugar control.Ask about any changes needed to your diet or medicines. If you have high blood pressure: Take your blood pressure medicine. Take up a regular exercise program that you enjoy.Check with your doctor to be sure your planned exercise program is right for you. Reduce your salt (sodium) intake.Your doctor can tell you how much salt per day is safe for you. If you are overweight, talk to your doctor about a weight loss plan. If you smoke, you must quit.Smoking worsens kidney disease.Talk to your doctor about ways to help you quit.For more information, visit the following links: www.smokefree.gov/pubs/clearing_the_air.pdf www.smokefree.gov www.[employer].com Talk to your doctor about any dietary restrictions advised. In general, it is advisable to limit protein, salt, potassium and phosphorus.Avoid excess fluids. Do not add salt at the table and avoid salty foods.A calcium supplement may be prescribed to protect your bones from osteoporosis. Avoid the following over the counter medicines, or consult your doctor before using: Aspirin and anti-inflammatory drugs such as ibuprofen (Advil, Motrin), naprosyn (Aleve); [Short term use of acetaminophen (Tylenol) for fever or pain is okay.] Laxatives and antacids containing magnesium or aluminum (Mylanta, Maalox) Avoid Fleet or phosphosoda enemas which contain phosphorus Certain stomach acid-blocking medicine such as cimetidine (Tagamet), ranitidine (Zantac) Decongestants containing pseudoephedrine (such as some forms of Sudafed or Actifed) Herbal supplements Follow Up with your doctor or as advised by our staff. Contact one of the following for more information. [place] [employer] Kidney [phone] www.aakp.org National Kidney Foundation www.kidney.org Return Promptly or contact your doctor if any of the following occurs: Nausea or vomiting Severe weakness, dizziness, fainting, drowsiness or confusion Chest pain or shortness of breath Unexpected weight gain or swelling in the legs, ankles or around the eyes Heart beating fast, slow or irregularly Decrease or loss in urine output Hypokalemia Hypokalemia means a low level of potassium in the blood. This most often occurs in patients who take diuretics (water pills). It can also occur due to severe vomiting or diarrhea. A mild case usually causes no symptoms. It is only found with blood testing. More severe potassium loss causes generalized weakness, muscle or abdominal cramping, heart palpitations (rapid or irregular heartbeats) and low blood pressure. Home Care: 1) Take any potassium supplements prescribed. 2) Eat foods rich in potassium. The highest amount is found in artichoke, baked potatoes, spinach, cantaloupe, honeydew melon, cod, halibut, salmon, and scallops. White, red, or muller beans are also very good sources. A modest amount is found in orange juice, bananas, carrots, and tomato juice. 3) Certain types of diuretics (water pills), such as Lasix (furosemide), require that you take potassium supplements for as long as you take the diuretic pills. If you are taking a diuretic, discuss the need for potassium supplements with your doctor. Follow Up with your doctor for a repeat blood test within the next week or as advised by our staff. Get Prompt Medical Attention if any of the following occur: -- Increased weakness -- Feeling dizzy -- Irregular heartbeat, extra beats or very fast heart rate -- Fainting spell You have been given the following additional information: Renal Insufficiency Hypokalemia (Electronically signed by Charles Roberts MD 02/14/2017 3:14)
--- NOTE | 2017-02-14 03:15 | ED MAR SUMMARY ---
..... Medication Administration Record [facility] [address] [place] [address] Patient: MICHAEL NGUYEN Visit ID: [id number] 51y, F Weight: 92.0 kg Height/Length: 63 in BMI: 35.9 ALLERGIES: Carafate, Depakote, Gabapentin, Geodon, Januvia, Lamictal, LIsinopril, [place], LOSARTAN, Reglan, Risperidone, Seroquel Start 18:30 02/13/2017 Mary Kate Quezada R.N., Stop 22:07 02/13/2017 Mary Kate Quezada R.N. Medication Administered: POTASSIUM CHLORIDE [IVPB] (POTASSIUM CHLORIDE), Dose: 20 meq IVPB, Rate: 33 mL/hr, Site: #1 wrist. Medication Ordered: Potassium Chloride IV 20 meq/100mL (HIGH ALERT MEDICATION, NOW, Run no faster than 10 mEq/hr). Given 18:32 02/13/2017 Mary Kate Quezada R.N. Medication Administered: POTASSIUM CHLORIDE [PO] (POTASSIUM CHLORIDE ER), Dose: 20 meq PO. Medication Ordered: Potassium Chloride PO 20 meq (NOW).
--- NOTE | 2017-02-14 03:15 | ED MED RECONCILIATION SUMMARY ---
Patient: MICHAEL NGUYEN Medication Reconciliation Report [facility] VisitID: [id number] [address] [place] [address] 51y, F Registration Date/Time: 02/13/2017 Weight: 92.0 kg Height/Length: 63 in. BMI: 35.9 ALLERGIES: Carafate, Depakote, Gabapentin, Geodon, Januvia, Lamictal, LIsinopril, [place], LOSARTAN, Reglan, Risperidone, Seroquel The patient's Home Medications are listed below: CHANGE THE FOLLOWING MEDICATIONS TO: Furosemide* : 40 mg every AM CONTINUE TAKING THE FOLLOWING MEDICATIONS: ASA Oral 81 mg, daily Carvedilol Phosphate ER Oral 12.5 mg, 2 x daily HumaLOG Subcutaneous 5 units, before meals, lunch and dinner only HumuLIN 70/30 Subcutaneous ((70-30) 100 unit/mL) 28 units, q AM THE FOLLOWING MEDICATIONS NEED TO BE RECONCILED: Imitrex Oral (100 mg) 1 tablet, PRN Latuda Oral (40 mg) 1 tablet, Q AM Lipitor Oral (20 mg) 1 tablet, at bedtime Magnesium Oral 250 mg , twice daily Mirapex Oral (0.5 mg) 2 tablets, at bedtime Omeprazole Oral (20 mg) 1 tablet, daily Synthroid Oral Victoza Subcutaneous 1.8, q AM Vitamin D 3 2000 IU, 2x a week Zantac Oral (150 mg) 1 tablet, at bedtime Zofran Oral (4 mg) 1 tablet, PRN The source(s) of the original Home Medication information: patient's family member patient The following Medications were given to the patient in the Emergency Department: Potassium Chloride [IVPB] IVPB bolus 0, then 20 meq 33 mL/hr, administered: 02/13/2017 6:30:00 PM Potassium Chloride [PO] PO 20 meq, administered: 02/13/2017 6:32:00 PM The following Medications were prescribed to the patient: K-Dur 20 mEq: take 1 orally every 24 hours. Dispense five (5). No refills. Substitution is permissible. -- Charles Roberts MD
--- NOTE | 2017-02-14 03:15 | ED MAR SUMMARY ---
..... Medication Administration Record [facility] [address] [place] [place] [address] Patient: MICHAEL NGUYEN Visit ID: [id number] 51y, F Weight: 92.0 kg Height/Length: 63 in BMI: 35.9 ALLERGIES: Carafate, Depakote, Gabapentin, Geodon, Januvia, Lamictal, LIsinopril, [place], LOSARTAN, Reglan, Risperidone, Seroquel Start 18:30 02/13/2017 Mary Kate Quezada R.N., Stop 22:07 02/13/2017 Mary Kate Quezada R.N. Medication Administered: POTASSIUM CHLORIDE [IVPB] (POTASSIUM CHLORIDE), Dose: 20 meq IVPB, Rate: 33 mL/hr, Site: #1 wrist. Medication Ordered: Potassium Chloride IV 20 meq/100mL (HIGH ALERT MEDICATION, NOW, Run no faster than 10 mEq/hr). Given 18:32 02/13/2017 Mary Kate Quezada R.N. Medication Administered: POTASSIUM CHLORIDE [PO] (POTASSIUM CHLORIDE ER), Dose: 20 meq PO. Medication Ordered: Potassium Chloride PO 20 meq (NOW).
--- NOTE | 2017-02-14 03:15 | ED MED RECONCILIATION SUMMARY ---
Patient: MICHAEL NGUYEN Medication Reconciliation Report [facility] VisitID: [id number] [address] [place] [address] 51y, F Registration Date/Time: 02/13/2017 Weight: 92.0 kg Height/Length: 63 in. BMI: 35.9 ALLERGIES: Carafate, Depakote, Gabapentin, Geodon, Januvia, Lamictal, LIsinopril, [place], LOSARTAN, Reglan, Risperidone, Seroquel The patient's Home Medications are listed below: CHANGE THE FOLLOWING MEDICATIONS TO: Furosemide* : 40 mg every AM CONTINUE TAKING THE FOLLOWING MEDICATIONS: ASA Oral 81 mg, daily Carvedilol Phosphate ER Oral 12.5 mg, 2 x daily HumaLOG Subcutaneous 5 units, before meals, lunch and dinner only HumuLIN 70/30 Subcutaneous ((70-30) 100 unit/mL) 28 units, q AM THE FOLLOWING MEDICATIONS NEED TO BE RECONCILED: Imitrex Oral (100 mg) 1 tablet, PRN Latuda Oral (40 mg) 1 tablet, Q AM Lipitor Oral (20 mg) 1 tablet, at bedtime Magnesium Oral 250 mg , twice daily Mirapex Oral (0.5 mg) 2 tablets, at bedtime Omeprazole Oral (20 mg) 1 tablet, daily Synthroid Oral Victoza Subcutaneous 1.8, q AM Vitamin D 3 2000 IU, 2x a week Zantac Oral (150 mg) 1 tablet, at bedtime Zofran Oral (4 mg) 1 tablet, PRN The source(s) of the original Home Medication information: patient's family member patient The following Medications were given to the patient in the Emergency Department: Potassium Chloride [IVPB] IVPB bolus 0, then 20 meq 33 mL/hr, administered: 02/13/2017 6:30:00 PM Potassium Chloride [PO] PO 20 meq, administered: 02/13/2017 6:32:00 PM The following Medications were prescribed to the patient: K-Dur 20 mEq: take 1 orally every 24 hours. Dispense five (5). No refills. Substitution is permissible. -- Charles Roberts MD
== END 2017-02-13 22:56 | disposition home or self-care (01) ==
LOC: ED SRH 16:17
DX: N28.9 Disorder of kidney and ureter, unspecified (principal); E11.22 Type 2 diabetes mellitus with diabetic chronic kidney disease; E87.6 Hypokalemia; E03.9 Hypothyroidism, unspecified; Z79.82 Long term (current) use of aspirin; Z79.4 Long term (current) use of insulin; Z79.899 Other long term (current) drug therapy; Z88.8 Allergy status to other drugs, medicaments and biological substances
CPT/HCPCS: 90004; 90047; 90074; 90100; 92720; 95059

== ENCOUNTER 2017-03-21 18:09 | Emergency (ER) | payer OTHER ==
--- NOTE | 2017-03-21 21:36 | DIAGNOSTIC IMAGING REPORT ---
PROCEDURE: CT ABDOMEN/PELVIS W/O CONTRAST INDICATION: ABDOMINAL PAIN TECHNIQUE: Noncontrast axial images with sagittal and coronal reformations. Intravenous contrast was not utilized due to compromised renal status (GFR 27). COMPARISON: None. FINDINGS: ABDOMEN: Moderate to large amount of ingested material in the stomach. Bowel pattern is otherwise normal, including appendix. Gallbladder, liver, spleen, pancreas, kidneys, and aorta are normal. Bowel pattern is normal, including retrocecal appendix. Mild degenerate changes of the thoracic and lumbar spine. PELVIS: There is mild enlargement the left ovary (4.2 cm) secondary to a 3.5 cm proteinaceous cyst. Right ovary appears normal. Mild enlargement the uterus most likely secondary to fibroid changes. No evidence of free fluid. IMPRESSION: 1. Moderate to large amount of ingested material in the stomach. 2. Otherwise negative CT abdomen. 3. Mild enlargement the left ovary secondary to a 3.5 cm proteinaceous cyst. 4. Mild enlargement the uterus secondary to fibroid changes. 5. Follow-up pelvic ultrasound in 3-4 weeks is recommended to confirm resolution of left ovarian cyst and evaluate fibroid changes. 6. Findings discussed with Dr. Radha Holliday. All CT scans at this facility use dose modulation, iterative reconstruction, and/or weight-based dosing when appropriate to reduce radiation dose to as low as reasonably achievable.
--- NOTE | 2017-03-21 22:06 | ED NURSING NOTES ---
Clinical Report - Nurses [facility] [address] [address] 03/21/2017 18:09 Patient: MICHAEL NGUYEN TRIAGE Triage time 18:43. Acuity: LEVEL 3. Chief Complaint: (Low back pain that radiates around to the LLQ & RLQ, onset 1 week ago. Pt was seen at urgent care today and was referred to the ER. Pt denies N/V, no report of fever.). SEPSIS SCREEN: Sepsis Screen. Negative (no infection suspected/documented). CHHAYA COMA SCORE: [place] Coma Scale: 15- eyes open spontaneously (4); best verbal response- oriented x 4 (5); best motor response- obeys commands (6). --18:51 [place] Britton R.N. 18:43 03/21/17. BP: 143/86 (regular adult cuff) taken on the left arm, while sitting. HR: 92. RR: 20. O2 saturation: 95% on room air. Temp: 97.9 F (oral). Pain level now: 10/10. Additional comments: (bd pain is worse than the back pain). --18:51 [place] Britton R.N. Weight: 93.8 kg stated. Height/Length: 63 inches Per Patient. BMI: 36.6. --18:47 [place] R.N. Medications ASA Oral 81 mg, daily. Carvedilol Phosphate ER Oral 12.5 mg, 2 x daily. Furosemide 40 mg , 2x daily (1 1/2 in AM and 1 tab in afternoon). HumaLOG Subcutaneous 5 units, before meals (lunch and dinner only). HumuLIN 70/30 Subcutaneous (Suspension (70-30) 100 unit/mL) 28 units, q AM. Imitrex Oral (Tablet 100 mg) 1 tablet, PRN. Latuda Oral (Tablet 40 mg) 1 tablet, Q AM. Lipitor Oral (Tablet 20 mg) 1 tablet, at bedtime. Magnesium Oral 250 mg , twice daily. Mirapex Oral (Tablet 0.5 mg) 2 tablets, at bedtime. Omeprazole Oral (Tablet Delayed Release 20 mg) 1 tablet, daily. Synthroid Oral. Victoza Subcutaneous 1.8, q AM. Vitamin D 3 2000 IU, 2x a week. Zantac Oral (Tablet 150 mg) 1 tablet, at bedtime. Zofran Oral (Tablet 4 mg) 1 tablet, PRN. --18:44 [place] Britton R.N. Allergies Carafate. Depakote. Gabapentin. Geodon. Januvia. Lamictal. LIsinopril. [place]. LOSARTAN. Reglan. Risperidone. Seroquel. --18:44 [place] Britton R.N. History Arrived by private vehicle. Historian: patient. Accompanied by friend. PAST MEDICAL HX: Denies current : reports not . SOCIAL HX: Never smoker. Occasional alcohol use. No drug use. ABUSE ASSESSMENT: No report of abuse. --18:51 [place] Britton R.N. PROBLEMS: Renal Insufficiency. Hypokalemia. Suicidal Ideation. Depression. Dehydration. Chest Wall Pain. Asthma. Bipolar Disorder. Hypothyroidism. Diabetes Mellitus. --18:45 [place] Britton R.N. ADDITIONAL SURGERIES: Cataract Surgery. Tonsillectomy. Uterine ablation . --18:45 West Britton R.N. Interventions ID band on patient. To treatment room. --18:51 [place] Britton R.N. NURSING PROGRESS NOTES 20:10 03/21/2017 Site #1 started via IV in the right antecubital space with an 20g angiocath using a topical anesthetic, with aseptic technique and good blood return; one attempt. Blood drawn: rainbow set. Labeled in the presence of the patient and sent to the lab. Saline lock flushed with 10 mL saline. --20:20 Zander Thakur R.N. ( in for evaluation). --20:22 Dinah Morales R.N. 20:10 03/21/2017 Started bag #1 1000 mL IV Fluids IV NS (Saline); bolus of 1000 mL wide open then over 1 hour(s) via site #1. Allergies verified and confirmed 5 rights. IV patency established. IV site checked: no pain, redness, or swelling. IV flushed thoroughly pre- and post-medication administration. --20:32 Dinah Morales R.N. 20:39 03/21/2017 Toradol IVP 30 mg given over 2 minute(s) via site #1. Allergies verified and confirmed 5 rights. IV patency established. IV site checked: no pain, redness, or swelling. IV flushed thoroughly pre- and post-medication administration. IVP given by RN. --20:47 Dinah Morales R.N. 20:41 03/21/2017 Dilaudid (HYDROmorphone HCl PF) IVP 1 mg given over 2 minute(s) via site #1. Allergies verified, confirmed 5 rights and sedative warning given to the patient. IV patency established. IV site checked: no pain, redness, or swelling. IV flushed thoroughly pre- and post-medication administration. IVP given by RN. --20:47 Dinah Morales R.N. Patient returned from CT by stretcher with tech. (21:22). --21:22 Dinah Morales R.N. The patient reports no complaints and she is calm. Overall patient status is improved- she states feels better. RESPIRATORY: No respiratory distress. Breath sounds normal. SKIN: Skin is warm and dry. Skin color within normal limits. --21:24 Dinah Morales R.N. Two patient identifiers checked. Call light placed in reach. Side rails up x 2. Bed placed in lowest position. Brakes of bed on. --21:24 Dinah Morales R.N. 21:24 03/21/17. BP: 122/74 taken on the left arm, while lying. HR: 79 (regular and normal rate). RR: 16 (regular and unlabored). O2 saturation: 92% on room air. Temp: deferred. Pain level now: 0/10. --21:25 Dinah Morales R.N. 21:25 03/21/2017 Dilaudid IVP Response: pain is gone now. Symptoms have improved the patient feels better. --21:25 Dinah Morales R.N. 21:25 03/21/2017 Toradol IVP Response: pain is gone now. Symptoms have improved the patient feels better. --21:25 Dinah Morales R.N. 21:42 03/21/2017 IV Fluids IV NS Discontinued: bag #1 completed. Total amount infused: 1000 mL. IV patency established. IV site checked: no pain, redness, or swelling. IV flushed thoroughly. --21:42 Dinah Morales R.N. DISPOSITION / DISCHARGE Departure time: 2214. Condition at departure: improved and stable. No learning barriers present. Discharge instructions provided and reviewed with the patient and spouse. Reviewed medication(s) side effects, precautions, dosing and course information. Prescription(s) given to the patient. Reviewed clear liquid diet. Patient verbalized understanding. Written instructions provided in [place]. The patient was discharged home and accompanied by spouse. She left the Emergency Department ambulatory and via private vehicle. Spouse driving. --22:21 Dinah Morales R.N. 22:10 03/21/17. BP: 122/84 taken on the left arm, while lying. HR: 73 (regular and normal rate). RR: 16 (regular and unlabored). O2 saturation: 99% on room air. Temp: deferred. Pain level now: 0/10. --22:21 Dinah Morales R.N. 22:15 03/21/2017 Site #1 removed upon discharge. Catheter intact. Manual pressure and bandage applied. --22:21 Dinah Morales R.N. Locked/Released at 03/21/2017 22:22 by Dinah Morales R.N.
--- NOTE | 2017-03-21 22:06 | ED CLINICAL REPORT ---
Clinical Report - Physicians/Mid Levels [facility] [address] [place] [address] 03/21/2017 18:09 Patient: MICHAEL NGUYEN Time Seen: 18:41. Arrived- By private vehicle. Historian- patient. HISTORY OF PRESENT ILLNESS Chief Complaint: BACK PAIN. It is described as being moderate in degree and in the area of the left side of the upper lumbar spine and right side of the upper lumbar spine and radiating to the abdomen (Right and left lower quadrants). The quality is noted to be "pain". Modifying factors- worsened by rotation of the body to the right or left. Not relieved by anything. Onset- about 1 week ago and it is still present. No bladder dysfunction, bowel dysfunction, sensory loss or motor loss. Patient denies an injury. No other injury. Similar symptoms previously: None. Recent medical care: Not recently seen/assessed. REVIEW OF SYSTEMS No fever, chills, eye discomfort, headache or sore throat. No cough, difficulty breathing, chest pain, skin rash or abdominal pain. No nausea, vomiting, diarrhea, black stools or difficulty with urination. No urinary frequency, hematuria or bloody stools. All systems otherwise negative, except as recorded above. PAST HISTORY Problems: Renal Insufficiency. Hypokalemia. Suicidal Ideation. Depression. Dehydration. Chest Wall Pain. Asthma. Bipolar Disorder. Hypothyroidism. Diabetes Mellitus. Additional Surgeries: Cataract Surgery. Tonsillectomy. Uterine ablation . Medications: ASA Oral 81 mg, daily. Carvedilol Phosphate ER Oral 12.5 mg, 2 x daily. Furosemide 40 mg , 2x daily (1 1/2 in AM and 1 tab in afternoon). HumaLOG Subcutaneous 5 units, before meals (lunch and dinner only). HumuLIN 70/30 Subcutaneous (Suspension (70-30) 100 unit/mL) 28 units, q AM. Imitrex Oral (Tablet 100 mg) 1 tablet, PRN. Latuda Oral (Tablet 40 mg) 1 tablet, Q AM. Lipitor Oral (Tablet 20 mg) 1 tablet, at bedtime. Magnesium Oral 250 mg , twice daily. Mirapex Oral (Tablet 0.5 mg) 2 tablets, at bedtime. Omeprazole Oral (Tablet Delayed Release 20 mg) 1 tablet, daily. Synthroid Oral. Victoza Subcutaneous 1.8, q AM. Vitamin D 3 2000 IU, 2x a week. Zantac Oral (Tablet 150 mg) 1 tablet, at bedtime. Zofran Oral (Tablet 4 mg) 1 tablet, PRN. Allergies: Carafate. Depakote. Gabapentin. Geodon. Januvia. Lamictal. LIsinopril. [place]. LOSARTAN. Reglan. Risperidone. Seroquel. SOCIAL HISTORY Never smoker. Occasional alcohol use. No drug use. ADDITIONAL NOTES The nursing notes have been reviewed. PHYSICAL EXAM Vital Signs: 03/21/2017 18:43 BP: 143/86. HR: 92. RR: 20. O2 saturation: 95%. Temp: 97.9 F. Pain level now: 07/31. Have been reviewed. Appearance: Alert. No acute distress. (Patient appears mildly uncomfortable.). HEENT: Normal external inspection. Eyes: Pupils equal, round and reactive to light. Neck: Normal inspection. Neck nontender. Painless ROM. CVS: Normal heart rate and rhythm. Heart sounds normal. Pulses normal. Respiratory: No respiratory distress. Breath sounds normal. Abdomen: Mild tenderness in the epigastric area, right lower quadrant and left lower quadrant. No guarding or rebound tenderness. No organomegaly. No mass. Back: Mildly limited ROM in the back- in the lumbar spine: decreased right lateral bending and left lateral bending. Skin: Skin warm and dry. Normal skin color. No rash. Normal skin turgor. Extremities: Extremities exhibit normal ROM. Extremities nontender. Neuro: Oriented X 3. Mood/affect normal. No motor deficit. No sensory deficit. LABS, X-RAYS, AND EKG CT Abdomen - Pelvis: Normal aorta. Normal liver, spleen, pancreas, gallbladder and adrenals. Normal kidneys. Bladder normal. Appendix normal. No mass. No free fluid. No bony lesion. No diverticulitis. Study type: upper abdomen; lower abdomen; pelvis. Abdomen - pelvic CT performed without contrast. The study was independently viewed by me, interpreted by the radiologist and contemporaneously by me and discussed with the radiologist. Prior studies were not available for comparison. Laboratory Tests: UA-Culture if indicated: (AVIVA: 03/21/2017 20:35) ( MsgRcvd 03/21/2017 21:56) Final results Test Result Flag Units (Reference) URINE COLOR YELLOW URINE APPEARANCE CLEAR URINE GLUCOSE NEGATIVE (NEGATIVE) URINE BILIRUBIN NEGATIVE (NEGATIVE) URINE KETONE NEGATIVE (NEGATIVE) URINE SPECIFIC GRAVITY 1.015 (1.010-1.030) URINE PH 6.0 (5.0-8.0) URINE PROTEIN NEGATIVE (NEGATIVE) URINE UROBILINOGEN 0.2 EU/dL (0.2-1.0) URINE NITRITE NEGATIVE (NEGATIVE) URINE BLOOD NEGATIVE (NEGATIVE) URINE LEUK ESTERASE NEGATIVE (NEGATIVE) URINE RBC 0-1 rbc/hpf (0-1) URINE WBC 0-1 wbc/hpf (0-1) URINE EPITHELIAL CELLS 0-1 EPI/hpf (0-5) URINE BACTERIA NONE SEEN (NONE SEEN) URINE COMMENT CULT NOT INDICATED URINE CULTURES ARE SET-UP BASED ON THE FOLLOWING CRITERIA:POSITIVE NITRITEPOSITIVE LEUKOCYTE ESTERASEGREATER THAN 10 WHITE BLOOD CELLSMODERATE (2+) OR GREATER BACTERIA CBC w Diff: (AVIVA: 03/21/2017 20:14) ( Mscvd 03/21/2017 20:32) Final results Test Result Flag Units (Reference) WHITE BLOOD COUNT 7.8 K/uL (4.5-11.5) RED BLOOD COUNT 3.97 L M/uL (4.00-5.20) HEMOGLOBIN 11.3 L gm/dL (12.0-16.0) HEMATOCRIT 34.2 L % (36.0-46.0) MEAN CELL VOLUME 86 fL (80-100) MEAN CORPUSCULAR HGB 29 pg (26-34) MEAN CORPUSCULAR HGB CONC 33 g/dL (31-37) RED CELL DISTRIBUTION WIDTH 15.4 H % (11.6-14.8) PLATELET COUNT 354 K/uL (150-400) NEUTROPHIL % 57.8 % (50-75) LYMPH % 32.5 % (25-40) MONO % 8.3 % (3-14) EOSINOPHIL % 1.1 % (0-4) BASOPHIL % 0.3 % (0-2) CMP: (AVIVA: 03/21/2017 20:14) ( [facility] 03[facility]21/[place] 20:48) Final results Test Result Flag Units (Reference) GLUCOSE 203 H mg/dL (70-110) BUN 34 H mg/dL (7-18) CREATININE 2.0 H mg/dL (0.6-1.3) Estimated GFR 27.92 mL/min Estimated GFR- 33.84 mL/min Note: Persistent reduction over 3 months in eGFR<60 mL/min/1.73 m2 defines CKD. Patients with eGFR values>=60 mL/min/1.73 m2 may also have CKD if evidence ofpersistent proteinuria. Additional information may be foundat www.kidney.org. SODIUM 142 mmol/L (136-145) POTASSIUM 3.1 L mmol/L (3.5-5.1) CHLORIDE 100 mmol/L (98-107) CARBON DIOXIDE 34 H mmol/L (21-32) CALCIUM 9.0 mg/dL (8.5-10.1) TOTAL PROTEIN 7.4 g/dL (6.4-8.2) ALBUMIN 3.3 g/dL (3.3-5.0) BILIRUBIN, TOTAL 0.3 mg/dL (0.0-1.0) ALKALINE PHOSPHATASE 97 U/L (46-116) AST (SGOT) 27 U/L (15-37) ALT (SGPT) 45 U/L (12-78) LIPASE 444 H U/L (73-393) . Pulse Oximetry: 03/21/2017 18:43 O2 saturation: 95%. (FIO2 - room air). Interpretation: normal. PROGRESS AND PROCEDURES Course of Care: Patient was treated symptomatically with IV fluids, Toradol, and Dilaudid. Patient was worked up with laboratory studies, which showed mild renal insufficiency and mild pancreatitis, with a lipase of 444. Patient's urinalysis is negative. CT scan of the abdomen and pelvis was unremarkable. I did discuss with patient that she does have some mild pancreatitis, and that she will need to stick with clear liquids for the next day or two, while her pancreas heals. It is not clear what has caused the pancreatitis at this time. The patient is feeling better after symptomatic treatment and is stable for discharge home, and is agreeable to the plan. Patient and family counseled in person regarding the patient's stable condition, test results, diagnosis and need for follow-up. Concerns were addressed. Old medical records reviewed. Disposition: Discharged. Condition: stable and improved. CLINICAL IMPRESSION Acute idiopathic pancreatitis. Acute nontraumatic lumbar back pain. Single ruptured simple left ovarian cyst. INSTRUCTIONS Take clear liquids only for the next 24 hours until better. Advance diet as tolerated. (Your labs showed some slowing of your kidneys, and your pancreas is somewhat inflamed. You also have an ovarian cyst on the left, which is probably contributing to your pain. You should stick with just clear liquids tomorrow, to give your pancreas a rest, so it can recover. After that, you may eat small meals, as per your discharge instructions under "Pancreatitis."). Warnings: SEDATIVE MEDICATION: You were given sedative medication during your visit. Do not drive or operate dangerous machinery for 6 hours. GENERAL WARNINGS: Return or contact your physician immediately if your condition worsens or changes unexpectedly, if not improving as expected, or if other problems arise. Your Current Medications: CONTINUE TAKING THE FOLLOWING MEDICATIONS: ASA Oral : 81 mg daily. Carvedilol Phosphate ER Oral : 12.5 mg 2 x daily. Furosemide* : 40 mg 2x daily, 1 1/2 in AM and 1 tab in afternoon. HumaLOG Subcutaneous : 5 units before meals, lunch and dinner only. HumuLIN 70/30 Subcutaneous : Suspension (70-30) 100 unit/mL, 28 units q AM. Imitrex Oral : Tablet 100 mg, 1 tablet PRN. Latuda Oral : Tablet 40 mg, 1 tablet Q AM. Lipitor Oral : Tablet 20 mg, 1 tablet at bedtime. Magnesium Oral : 250 mg twice daily. Mirapex Oral : Tablet 0.5 mg, 2 tablets at bedtime. Omeprazole Oral : Tablet Delayed Release 20 mg, 1 tablet daily. Synthroid Oral. Victoza Subcutaneous : 1.8 q AM. Vitamin D 3* : 2000 IU 2x a week. Zantac Oral : Tablet 150 mg, 1 tablet at bedtime. Zofran Oral : Tablet 4 mg, 1 tablet PRN. Prescription Medications: Hydrocodone/APAP 5mg / 325mg: take 1-2 orally every 6 hours as needed for pain. Dispense twenty (20). No refill. Zofran (orally disintegrating tablets) 4 mg: take 1-2 orally every 6 hours as needed for nausea. Dispense twenty (20). No refill. Substitution is permissible. Follow-up: Follow up with your doctor. Call for the next available appointment. Reason for referral: Follow up ER visit, recheck pancreatic labs. Understanding of the discharge instructions verbalized by patient and family. (Electronically signed by Radha Holliday MD 04/02/2017 0:22)
--- NOTE | 2017-03-21 22:06 | ED ORDER SUMMARY ---
..... Patient: MICHAEL NGUYEN OrderSheet [facility] VisitID: [id number] [address] [address] 51y, F Registration Date/Time: 03/21/2017 ORDER SHEET Weight: 93.8 kg (stated) Allergies: Carafate, Depakote, Gabapentin, Geodon, Januvia, Lamictal, LIsinopril, [place], LOSARTAN, Reglan, Risperidone, Seroquel GENERAL ORDERS: CBC w Diff Urgent (19:43 03/21/2017 Rick NASH) (Ack 19:48 Fabrizio) (20:31 Dave R.N.) CMP Urgent (:43 03/21/2017 Rick NASH) (Ack 19:48 Fabrizio) (20:31 Dave R.N.) Lipase Urgent (:43 03/21/2017 Rick NASH) (Ack 19:48 Fabrizio) (20:31 Dave R.N.) UA-Culture if indicated Urgent (19:43 03/21/2017 Rick NASH) (Ack 19:48 Fabrizio) (20:51 Dave R.N.) CT Abd/Pel w Cont (No) (N/A) Urgent (20:31 03/21/2017 Rick NASH) (Ack 20:33 Judithekimana) (Cancelled: Change in patient [id number] Dave R.N.) CT Abd/Pel wo Cont Urgent (21:08 03/21/2017 Dave R.N. per protocol) (21:14 Dave R.N.) MEDICATION ORDERS: IV FLUIDS: IV NS : initial bolus 1000 mL (1000 mL/hr), then none - (NOW) (19:43 03/21/2017 Rick NASH) (Ack 20:06 Dave R.N.) (20:32 Dave R.N.) Dilaudid IV 1 mg (HIGH ALERT MEDICATION, NOW) (20:32 03/21/2017 Rick NASH) (Ack 20:36 Dave R.N.) (20:47 Dave R.N.) Toradol IV 30 mg (NOW) (20:32 03/21/2017 Rick NASH) (Ack 20:36 Dave Toribio) (20:47 Dave Toribio) ORDER SHEET NOTES: [Electronically signed by Dinah Morales R.N. (22:03/21/2017)] [Electronically signed by Radha Holliday MD (00:22 04/02/2017)] [Electronically locked/signed by Dinah Morales R.N. (:03/21/2017)]
--- NOTE | 2017-03-21 22:06 | ED ORDER SUMMARY ---
..... Patient: MICHAEL NGUYEN OrderSheet [facility] VisitID: [id number] [address] [address] 51y, F Registration Date/Time: 03/21/2017 ORDER SHEET Weight: 93.8 kg (stated) Allergies: Carafate, Depakote, Gabapentin, Geodon, Januvia, Lamictal, LIsinopril, [place], LOSARTAN, Reglan, Risperidone, Seroquel GENERAL ORDERS: CBC w Diff Urgent (19:43 03/21/2017 Rick NASH) (Ack 19:48 Fabrizio) (20:31 Dave R.N.) CMP Urgent (:43 03/21/2017 Rick NASH) (Ack 19:48 Fabrizio) (20:31 Dave R.N.) Lipase Urgent (:43 03/21/2017 Rick NASH) (Ack 19:48 Fabrizio) (20:31 Dave R.N.) UA-Culture if indicated Urgent (19:43 03/21/2017 Rick NASH) (Ack 19:48 Fabrizio) (20:51 Dave R.N.) CT Abd/Pel w Cont (No) (N/A) Urgent (20:31 03/21/2017 Rick NASH) (Ack 20:33 Judithekimana) (Cancelled: Change in patient [id number] Dave R.N.) CT Abd/Pel wo Cont Urgent (21:08 03/21/2017 Dave R.N. per protocol) (21:14 Dave R.N.) MEDICATION ORDERS: IV FLUIDS: IV NS : initial bolus 1000 mL (1000 mL/hr), then none - (NOW) (19:43 03/21/2017 Rick NASH) (Ack 20:06 Dave R.N.) (20:32 Dave R.N.) Dilaudid IV 1 mg (HIGH ALERT MEDICATION, NOW) (20:32 03/21/2017 Rick NASH) (Ack 20:36 Dave R.N.) (20:47 Dave R.N.) Toradol IV 30 mg (NOW) (20:32 03/21/2017 Rick NASH) (Ack 20:36 Dave Toribio) (20:47 Dave Toribio) ORDER SHEET NOTES: [Electronically signed by Dinah Morales R.N. (22:03/21/2017)] [Electronically signed by Radha Holliday MD (00:22 04/02/2017)] [Electronically locked/signed by Dinah Morales R.N. (:03/21/2017)]
--- NOTE | 2017-04-02 00:23 | ED DISCHARGE INSTRUCTIONS ---
Patient: MICHAEL NGUYEN General Instructions [facility] VisitID: [id number] [place] [address] 51y, F Registration Date/Time: 03/21/2017 Acute idiopathic pancreatitis. Acute nontraumatic lumbar back pain. Single ruptured simple left ovarian cyst. INSTRUCTIONS Take clear liquids only for the next 24 hours until better. Advance diet as tolerated. (Your labs showed some slowing of your kidneys, and your pancreas is somewhat inflamed. You also have an ovarian cyst on the left, which is probably contributing to your pain. You should stick with just clear liquids tomorrow, to give your pancreas a rest, so it can recover. After that, you may eat small meals, as per your discharge instructions under "Pancreatitis."). Warnings: SEDATIVE MEDICATION: You were given sedative medication during your visit. Do not drive or operate dangerous machinery for 6 hours. GENERAL WARNINGS: Return or contact your physician immediately if your condition worsens or changes unexpectedly, if not improving as expected, or if other problems arise. Your Current Medications: CONTINUE TAKING THE FOLLOWING MEDICATIONS: ASA Oral : 81 mg daily. Carvedilol Phosphate ER Oral : 12.5 mg 2 x daily. Furosemide* : 40 mg 2x daily, 1 1/2 in AM and 1 tab in afternoon. HumaLOG Subcutaneous : 5 units before meals, lunch and dinner only. HumuLIN 70/30 Subcutaneous : Suspension (70-30) 100 unit/mL, 28 units q AM. Imitrex Oral : Tablet 100 mg, 1 tablet PRN. Latuda Oral : Tablet 40 mg, 1 tablet Q AM. Lipitor Oral : Tablet 20 mg, 1 tablet at bedtime. Magnesium Oral : 250 mg twice daily. Mirapex Oral : Tablet 0.5 mg, 2 tablets at bedtime. Omeprazole Oral : Tablet Delayed Release 20 mg, 1 tablet daily. Synthroid Oral. Victoza Subcutaneous : 1.8 q AM. Vitamin D 3* : 2000 IU 2x a week. Zantac Oral : Tablet 150 mg, 1 tablet at bedtime. Zofran Oral : Tablet 4 mg, 1 tablet PRN. Prescription Medications: Hydrocodone/APAP 5mg / 325mg: take 1-2 orally every 6 hours as needed for pain. Dispense twenty (20). No refill. Zofran (orally disintegrating tablets) 4 mg: take 1-2 orally every 6 hours as needed for nausea. Dispense twenty (20). No refill. Substitution is permissible. Follow-up: Follow up with your doctor. Call for the next available appointment. Reason for referral: Follow up ER visit, recheck pancreatic labs. Understanding of the discharge instructions verbalized by patient and family. ADDITIONAL INFORMATION Sciatica Sciatica ("Lumbar Radiculopathy") causes a pain that spreads from the lower back down into the buttock, hip and leg. Sometimes leg pain can occur without any back pain. Sciatica is due to irritation or pressure on a spinal nerve as it comes out of the spinal canal. This is most often due to a bulge or rupture of a nearby spinal disk (the cartilage cushion between each spinal bone), which presses on a nearby nerve. Other causes include spinal stenosis (narrowing of the spinal canal) and spasm of the pyriform muscle (a muscle in the buttocks that the sciatic nerve passes through). Sciatica may begin after a sudden twisting/bending force (such as in a car accident), or sometimes after a simple awkward movement. In either case, muscle spasm is commonly present and contributes to the pain. The diagnosis of sciatica is made from the symptoms and physical exam. Unless you had a physical injury (such as a car accident or fall), X-rays are usually not ordered for the initial evaluation of sciatica because the nerves and disks cannot be seen on an x-ray. If signs of a compressed nerve are present (for example, loss of tendon reflex or strength in the leg), an MRI (magnetic resonance imaging) scan will need to be scheduled as an outpatient. Most sciatica (80-90%) gets better with medicine, exercise, physical therapy. If symptoms continue after at least three months of medical treatment, surgery may be considered. Home Care: You may need to stay in bed the first few days. But, as soon as possible, begin sitting or walking to avoid problems with prolonged bed rest. When in bed, try to find a position of comfort. A firm mattress is best. Try lying flat on your back with pillows under your knees. You can also try lying on your side with your knees bent up towards your chest and a pillow between your knees. Avoid prolonged sitting. This puts more stress on the lower back than standing or walking. Some persons find relief with heat (hot shower, hot bath or heating pad) and massage, while others prefer cold packs (crushed or cubed ice in a plastic bag, wrapped in a towel). Try both and use the method that feels best for 20 minutes several times a day. You may use acetaminophen (Tylenol) or ibuprofen (Motrin, Advil) to control pain, unless another pain medicine was prescribed. [ NOTE: If you have chronic liver or kidney disease or ever had a stomach ulcer or GI bleeding, talk with your doctor before using these medicines.] Be aware of safe lifting methods and do not lift anything over 15 pounds until all the pain is gone. Follow Up with your doctor or this facility if your symptoms do not start to improve after one week. Physical therapy or further testing may be needed. [NOTE: If X-rays were taken, they will be reviewed by a radiologist. You will be notified of any new findings that may affect your care.] Get Prompt Medical Attention if any of the following occur: Pain becomes worse, not controlled by the prescribed medicine Weakness or numbness in one or both legs Numbness in the groin, genital area Loss of bowel or bladder control Ovarian Cyst The ovary is a small organ located on each side of the uterus. During each menstrual cycle a tiny egg sac forms in the ovary. If the egg is released but does not occur, this sac usually dissolves. Sometimes, the sac may fill with fluid. It then enlarges into a painful cyst. Usually the cyst will rupture or shrink on its own. In either case, the pain gradually goes away over the next 1-3 days. If the cyst does not shrink or rupture, it may cause continued pain. Home Care: Rest in bed and avoid heavy exertion until you are feeling better. Heat to the lower abdomen usually helps (heating pad or hot packs -- a small towel soaked in hot water). You may use acetaminophen (Tylenol) or ibuprofen (Motrin, Advil) to control pain, unless another pain medicine was prescribed. [NOTE: If you have chronic liver or kidney disease or ever had a stomach ulcer or GI bleeding, talk with your doctor before using these medicines.] Follow Up: See your doctor within the next 2-3 days if your pain doesnt improve. Otherwise, follow up with your doctor after your next period or as directed by our staff. Get Prompt Medical Attention if any of the following occur: Pain worsens or fails to respond to the above measures Fever of 100.4F (38C) or higher, or as directed by your healthcare provider Heavy vaginal bleeding (soaking one pad an hour for three hours) You feel weak or dizzy Fainting Passage of a pink or massey tissue with menstrual bleeding Pancreatitis The pancreas is an organ in the left upper abdomen that secretes digestive juices into the stomach. Pancreatitis is an inflammation of the pancreas. This may occur for various causes including heavy alcohol use, gall stone blockage of the outflow duct from the pancreas, certain medicines and viral illness. Sometimes the cause of pancreatitis cannot be found. Moderate to severe illness requires being treated in the hospital. Milder attacks of pancreatitis can be treated at home. Home Care: 1) Absolutely NO ALCOHOL. 2) Rest in bed or sit up in a chair until you feel better. 3) Eat small more frequent meals rather than a few large meals each day. 4) Follow a high protein, high carbohydrate, low fat diet. 5) If you were given medicine for pain or vomiting, take it as prescribed. Follow Up with your doctor or as directed by our staff for further evaluation. Get Prompt Medical Attention if any of the following occur: -- Continued or worsening pain in the abdomen -- Repeated vomiting: unable to keep down liquids -- Dizziness, weakness or fainting -- Vomiting blood or blood in the stool (black or red color) -- Fever over 100.4 F (38.0 C) -- Severe muscle cramps or seizure -- Trouble breathing or fast breathing (over 25 breaths/minute) -- Jaundice (yellow color of the skin or eyes) Clear Liquid Diet Clear liquids are any liquid that you can see through as well as those that are very easy to digest. This is used while the body is recovering from irritation or infection of the stomach or intestinal tract. It may also be used before special procedures or surgery. This diet is to be used no more than three days. You may include the following items. Adults Adults should drink a total of 23 quarts of liquid per day. It may be easier to drink small frequent servings rather than a few large ones. Liquids can include: Fruit juices.Strained orange juice or lemonade (no pulp), apple, grape and cranberry juice, clear fruit drinks, sports drinks Beverages.Sport drinks, sodas, mineral water (plain or flavored), tea, black coffee, liquid gelatin (add twice the recommended amount of water) Soups.Clear broth, consomm, bouillon Desserts.Plain gelatin, popsicles, fruit juice bars Children Over 2 years old The following liquids are acceptable for children over age 2: Fruit juices.Strained orange juice or lemonade (no pulp), apple, grape and cranberry juice, clear fruit drinks Beverages. Sports drinks, sodas, mineral water (plain or flavored), tea, liquid gelatin (add twice the recommended amount of water) Soups. Clear broth, consomm, bouillon Desserts. Plain gelatin, popsicles, fruit juice bars Children under 2 years old Oral rehydration fluids such are available at drug stores and most grocery stores without a prescription. You have been given the following additional information: Back Pain W/ Sciatica Ovarian Cyst Pancreatitis Diet, Clear Liquid (Electronically signed by Radha Holliday MD 04/02/2017 0:22)
--- NOTE | 2017-04-02 00:23 | ED MED RECONCILIATION SUMMARY ---
Patient: MICHAEL NGUYEN Medication Reconciliation Report [facility] VisitID: [id number] [address] [place] [address] 51y, F Registration Date/Time: 03/21/2017 Weight: 93.8 kg Height/Length: 63 in. BMI: 36.6 ALLERGIES: Carafate, Depakote, Gabapentin, Geodon, Januvia, Lamictal, LIsinopril, [place], LOSARTAN, Reglan, Risperidone, Seroquel The patient's Home Medications are listed below: CONTINUE TAKING THE FOLLOWING MEDICATIONS: ASA Oral 81 mg, daily Carvedilol Phosphate ER Oral 12.5 mg, 2 x daily Furosemide 40 mg , 2x daily, 1 1/2 in AM and 1 tab in afternoon HumaLOG Subcutaneous 5 units, before meals, lunch and dinner only HumuLIN 70/30 Subcutaneous ((70-30) 100 unit/mL) 28 units, q AM Imitrex Oral (100 mg) 1 tablet, PRN Latuda Oral (40 mg) 1 tablet, Q AM Lipitor Oral (20 mg) 1 tablet, at bedtime Magnesium Oral 250 mg , twice daily Mirapex Oral (0.5 mg) 2 tablets, at bedtime Omeprazole Oral (20 mg) 1 tablet, daily Synthroid Oral Victoza Subcutaneous 1.8, q AM Vitamin D 3 2000 IU, 2x a week Zantac Oral (150 mg) 1 tablet, at bedtime Zofran Oral (4 mg) 1 tablet, PRN The source(s) of the original Home Medication information: Not obtained. The following Medications were given to the patient in the Emergency Department: IV NS IV Fluids bolus 1000 mL wide open, administered: 03/21/2017 8:10:00 PM Toradol [IVP] IVP 30 mg, administered: 03/21/2017 8:39:00 PM Dilaudid [IVP] IVP 1 mg, administered: 03/21/2017 8:41:00 PM The following Medications were prescribed to the patient: Hydrocodone/APAP 5mg / 325mg: take 1-2 orally every 6 hours as needed for pain. Dispense twenty (20). No refill. -- Radha Holliday MD Zofran (orally disintegrating tablets) 4 mg: take 1-2 orally every 6 hours as needed for nausea. Dispense twenty (20). No refill. Substitution is permissible. -- Radha Holliday MD
--- NOTE | 2017-04-02 00:23 | ED MAR SUMMARY ---
..... Medication Administration Record [facility] [address] [place] [address] Patient: MICHAEL NGUYEN Visit ID: [id number] 51y, F Weight: 93.8 kg Height/Length: 63 in BMI: 36.6 ALLERGIES: Carafate, Depakote, Gabapentin, Geodon, Januvia, Lamictal, LIsinopril, [place], LOSARTAN, Reglan, Risperidone, Seroquel Start 20:10 03/21/2017 Dinah Morales R.N., Stop 21:42 03/21/2017 Dinah Morales R.N. Medication Administered: IV NS (SALINE), Dose: IV Fluids over 1 hour(s), Bolus: 1000 mL wide open, Dispensed: 1000 mL bag, Site: #1 right AC. Medication Ordered: IV NS : initial bolus 1000 mL (1000 mL/hr), then none - (NOW). Given 20:39 03/21/2017 Dinah Morales R.N. Medication Administered: TORADOL [IVP], Dose: 30 mg IVP over 2 minute(s), Site: #1 right AC. Medication Ordered: Toradol IV 30 mg (NOW). Given 20:41 03/21/2017 Dinah Morales R.N. Medication Administered: DILAUDID [IVP] (HYDROMORPHONE HCL PF), Dose: 1 mg IVP over 2 minute(s), Site: #1 right AC. Medication Ordered: Dilaudid IV 1 mg (HIGH ALERT MEDICATION, NOW).
--- NOTE | 2017-04-02 00:23 | ED MAR SUMMARY ---
..... Medication Administration Record [facility] [address] [place] [place] [address] Patient: MICHAEL NGUYEN Visit ID: [id number] 51y, F Weight: 93.8 kg Height/Length: 63 in BMI: 36.6 ALLERGIES: Carafate, Depakote, Gabapentin, Geodon, Januvia, Lamictal, LIsinopril, [place], LOSARTAN, Reglan, Risperidone, Seroquel Start 20:10 03/21/2017 Dinah Morales R.N., Stop 21:42 03/21/2017 Dinah Morales R.N. Medication Administered: IV NS (SALINE), Dose: IV Fluids over 1 hour(s), Bolus: 1000 mL wide open, Dispensed: 1000 mL bag, Site: #1 right AC. Medication Ordered: IV NS : initial bolus 1000 mL (1000 mL/hr), then none - (NOW). Given 20:39 03/21/2017 Dinah Morales R.N. Medication Administered: TORADOL [IVP], Dose: 30 mg IVP over 2 minute(s), Site: #1 right AC. Medication Ordered: Toradol IV 30 mg (NOW). Given 20:41 03/21/2017 Dinah Morales R.N. Medication Administered: DILAUDID [IVP] (HYDROMORPHONE HCL PF), Dose: 1 mg IVP over 2 minute(s), Site: #1 right AC. Medication Ordered: Dilaudid IV 1 mg (HIGH ALERT MEDICATION, NOW).
--- NOTE | 2017-04-02 00:23 | ED MED RECONCILIATION SUMMARY ---
Patient: MICHAEL NGUYEN Medication Reconciliation Report [facility] VisitID: [id number] [address] [place] [address] 51y, F Registration Date/Time: 03/21/2017 Weight: 93.8 kg Height/Length: 63 in. BMI: 36.6 ALLERGIES: Carafate, Depakote, Gabapentin, Geodon, Januvia, Lamictal, LIsinopril, [place], LOSARTAN, Reglan, Risperidone, Seroquel The patient's Home Medications are listed below: CONTINUE TAKING THE FOLLOWING MEDICATIONS: ASA Oral 81 mg, daily Carvedilol Phosphate ER Oral 12.5 mg, 2 x daily Furosemide 40 mg , 2x daily, 1 1/2 in AM and 1 tab in afternoon HumaLOG Subcutaneous 5 units, before meals, lunch and dinner only HumuLIN 70/30 Subcutaneous ((70-30) 100 unit/mL) 28 units, q AM Imitrex Oral (100 mg) 1 tablet, PRN Latuda Oral (40 mg) 1 tablet, Q AM Lipitor Oral (20 mg) 1 tablet, at bedtime Magnesium Oral 250 mg , twice daily Mirapex Oral (0.5 mg) 2 tablets, at bedtime Omeprazole Oral (20 mg) 1 tablet, daily Synthroid Oral Victoza Subcutaneous 1.8, q AM Vitamin D 3 2000 IU, 2x a week Zantac Oral (150 mg) 1 tablet, at bedtime Zofran Oral (4 mg) 1 tablet, PRN The source(s) of the original Home Medication information: Not obtained. The following Medications were given to the patient in the Emergency Department: IV NS IV Fluids bolus 1000 mL wide open, administered: 03/21/2017 8:10:00 PM Toradol [IVP] IVP 30 mg, administered: 03/21/2017 8:39:00 PM Dilaudid [IVP] IVP 1 mg, administered: 03/21/2017 8:41:00 PM The following Medications were prescribed to the patient: Hydrocodone/APAP 5mg / 325mg: take 1-2 orally every 6 hours as needed for pain. Dispense twenty (20). No refill. -- Radha Holliday MD Zofran (orally disintegrating tablets) 4 mg: take 1-2 orally every 6 hours as needed for nausea. Dispense twenty (20). No refill. Substitution is permissible. -- Radha Holliday MD
== END 2017-03-21 22:15 | disposition home or self-care (01) ==
LOC: ED SRH 18:09
DX: K85.00 Idiopathic acute pancreatitis without necrosis or infection (principal); N83.202 Unspecified ovarian cyst, left side; M54.5 Low back pain; E11.9 Type 2 diabetes mellitus without complications; Z79.4 Long term (current) use of insulin; Z79.899 Other long term (current) drug therapy; Z79.82 Long term (current) use of aspirin; Z88.8 Allergy status to other drugs, medicaments and biological substances
CPT/HCPCS: 90004; 90100; 92235; 95059